=== PATIENT | female | born 1970 | race Hispanic/Latino ===

== ENCOUNTER 2024-09-30 15:28 | Emergency (ER) | payer OTHER ==
--- OUTSIDE RECORDS SUMMARY | 2024-09-30 15:31 | XMS REPORT | Continuity of Care Document ---
Author Name Unknown Address [address] [place] [address] [address] [place] [address] [facility] Address [address] [facility] [address] [place] [address] Care Team Providers Care Budget Controller Name Role Phone HUSEYIN SAL Attending Clinician Unavailable LAB90 Attending Clinician Unavailable JOSE ANGEL ACEVES Attending Clinician Unavailable DEMETRI ZALDIVAR Attending Clinician DARIELA Pugh Attending Clinician Unavailable SHARAD DONIS Attending Clinician MAYCO Pollard Attending Clinician Unavailable Payers Payer Name Policy Type Policy Number Effective Date Expirati on Date Source [facility] DUAL ACCESS OPEN (PPO D-SNP) 7 [id number] 2024 00:00:00 [employer] MA SELECT PLAN HMO 7 [id number] 2024 00:00:00 [employer] MP [facility] 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 9 [id number] 2023 00:00:00 Problems Condition Name Condition Details Condition Category Status Onset Date Resolution Date Last Treatment Date Treating Clinician Comments Source Morbid obesity Morbid obesity Disease Active 2023-06 00:00: 00 Maureen Kathleen Externa anne marie DM type 2 with diabetic mixed hyperlipid emia (multi HCC) DM type 2 with diabetic mixed hyperlipid emia (multi HCC) Disease Active 09-12 00:00: 00 Maureen Kathleen Externa anne marie Severe episode of recurrent major depressive disorder, 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, 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) Disease Active 09-12 00:00: 00 Maureen Seybold - Externa l Allergies, Adverse Reactions, Alerts Allergy Name Allergy Type Status Severity Reaction(s) Onset Date Inactive Date Treating Clinician Comments Source Asa-Sacc jered Lozanoi ty to adverse reaction s to drug Active Other 09-11 00:00: 00 Stomach issue Maureen Randall - Externa l Social History Social Habit Start Date Stop Date Quantity Comments Source History of tobacco use 1992-09-09 00:00:00 Passive smoker Maureen Randall - External Sexual orientation K jori Randall - External ASSERTION Not Maureen Randall - External Alcoholic beverage intake 2024-08-04 00:00:00 2024-08-04 00:00:00 Ex-drinker (finding) Maureen Randall - External Tobacco use and exposure 2023-12-14 00:00:00 2023-12-14 00:00:00 Smokeless tobacco non-user Maureen Kathleen External Cigarettes smoked current (pack per day) - Reported 2023-12-14 00:00:00 2023-12-14 00:00:00 Maureen Randall - External Cigarette pack-years 2023-12-14 00:00:00 2023-12-14 00:00:00 Maureen Randall - External Alcohol intake 2023-09-13 00:00:00 2023-09-13 00:00:00 Ex-drinker (finding) Maureen Randall - External History of Social function 2023-09-12 00:00:00 2023-09-12 00:00:00 Maureen Randall - External Tobacco Comment 2023-09-12 00:00:00 2023-09-12 00:00:00 STOPPED 1997 Maureen Randall - External Alcohol Comment 2023-09-12 00:00:00 2023-09-12 00:00:00 DRANK HEAVILY 1995 Maureen Randall - External Sex 2023-08-01 21:32:31 2023-08-01 21:32:31 Female (finding) Maureen Randall - External Sex assigned at 1970 00:00:00 1970 00:00:00 Maureen Randall - External Smoking Status Start Date Stop Date Source Ex-smoker 2023-12-14 00:00:00 2023-12-14 00:00:00 Kemal Kathleen External Medications Ordered Medication Name Filled Medication Name Start Date Stop Date Current Medication? Ordering Clinician Indication Dosage Frequency Signature (SIG) Comments Components Source Ketoconazol e 2 % apply externally Cream 08-04 00:00: 00 Yes [id number] Apply to rash twice a day. Maureen kenney Dulaglutide 4.5 MG/0.5ML subcutaneou s Solution Auto-inject or 08-04 00:00: 00 Yes [id number] 3 4.5mg Q1W Inject 4.5 mg into the skin once a week. Maureen kenney hydroCHLORO thiazide 12.5 MG oral Capsule 08-04 00:00: 00 Yes [id number] 12.5mg QD Take 1 capsule (12.5 mg total) by mouth daily. Maureen kenney hydroCHLORO thiazide 25 MG oral Tablet 08-04 00:00: 00 08-04 00:00 :00 No [id number] 25mg QD Take 1 tablet (25 mg total) by mouth daily. Maureen kenney Sumatriptan Succinate 25 MG oral Tablet 07-21 00:00: 00 Yes [id number] TAKE 1 TABLET BY MOUTH ONCE NEEDED FOR MIGRAINE (MAY REPEAT IN 2 HOURS IF UNRESOLVED . DO NOT EXCEED 200 MG IN 24 HOURS.). Maureen kenney Cyclobenzap rine HCl 5 MG oral Tablet 2023-06 00:00: 00 Yes [id number] 5mg QD TAKE 1 TABLET BY MOUTH NIGHTLY NEEDED FOR MUSCLE SPASMS Maureen kenney Topiramate 50 MG oral Tablet 2023-06 00:00: 00 08-04 00:00 :00 No [id number] 50mg Q.5D TAKE 1 TABLET BY MOUTH 2 TIMES DAILY Maureen kenney Topiramate 50 MG oral Tablet 2023-06 00:00: 00 05-28 00:00 :00 No [id number] 50mg QD Take 1 tablet (50 mg total) by mouth daily. Maureen kenney Topiramate 50 MG oral Tablet 2023-06 00:00: 00 Yes [id number] 50mg QD Take 1 tablet (50 mg total) by mouth daily. Maureen kenney Continuous Glucose Sensor (FreeStyle Gordon 2 Sensor) does not apply Misc 2023-06 00:00: 00 Yes [id number] 3 Check glucose continuous ly.. Maureen kenney Continuous Glucose Breastfeeding Educator (FreeStyle Gordon 2 Fairborn) does not apply Device 2023-06 00:00: 00 Yes [id number] 3 Check glucose continuous ly.. Maureen kenney Dulaglutide 4.5 MG/0.5ML subcutaneou s Solution Auto-inject or 2023-06 00:00: 00 08-04 00:00 :00 No [id number] 3 4.5mg Q1W Inject 4.5 mg into the skin once a week. Maureen kenney hydroCHLORO thiazide 12.5 MG oral Capsule 2023-06 00:00: 00 05-19 00:00 :00 No [id number] 12.5mg QD TAKE 1 CAPSULE BY MOUTH EVERY DAY Maureen kenney Trulicity 3 MG/0.5ML subcutaneou s Solution Auto-inject or 2023-06 00:00: 00 05-19 00:00 :00 No Maureen kenney Trulicity 3 MG/0.5ML subcutaneou s Solution Pen-injecto r 2023-06 00:00: 00 Yes [id number] 3 3mg Q1W Inject 3 mg into the skin once a week. Maureen kenney hydroCHLORO thiazide 12.5 MG oral Capsule 2023-06 00:00: 00 Yes [id number] 12.5mg QD Take 1 capsule (12.5 mg total) by mouth daily. Maureen kenney Cyclobenzap rine HCl 5 MG oral Tablet 2023-06 00:00: 00 Yes [id number] 5mg QD Take 1 tablet (5 mg total) by mouth nightly as needed for muscle spasms. Maureen kenney Trulicity 3 MG/0.5ML subcutaneou s Solution Pen-injecto r 2023-06 00:00: 00 05-19 00:00 :00 No [id number] 3 3mg Q1W Inject 3 mg into the skin once a week. Maureen kenney Topiramate 25 MG oral Tablet 03-06 00:00: 00 04-21 00:00 :00 No 25mg Q.5D Take 1 tablet (25 mg total) by mouth 2 times daily. Maureen kenney Dulaglutide (Trulicity) 1.5 MG/0.5ML subcutaneou s Solution Pen-injecto r 03-05 00:00: 00 04-21 00:00 :00 No [id number] 3 1.5mg Q1W Inject 1.5 mg into the skin once a week. Maureen kenney Ondansetron (ZOFRAN) 4 MG oral TABLET DISPERSIBLE 01-27 00:00: 00 Yes [id number] 4mg Q.[id number] 3D Take 1 tablet (4 mg total) by mouth every 8 hours as needed for nausea. Maureen kenney ALBUTEROL HFA 108 (90 Base) MCG/ACT IN AERS 01-27 00:00: 00 Yes [id number] 2{puff} Q.25D inhale 2 puffs by mouth every 6 hours as needed for wheeze Maureen kenney Trulicity 0.75 MG/0.5ML subcutaneou s Solution Pen-injecto r 12-13 00:00: 00 Yes [id number] 3 .75mg Q1W Inject 0.75 mg into the skin once a week. Maureen kenney Topiramate 50 MG oral Tablet 12-13 00:00: 00 05-19 00:00 :00 No [id number] 50mg Q.5D Take 1 tablet (50 mg total) by mouth 2 times daily. Maureen kenney Metformin HCl 1000 MG oral Tablet 12-12 00:00: 00 12-13 00:00 :00 No [id number] 3 1000mg Take 1 tablet (1,000 mg total) by mouth in the morning and 1 tablet (1,000 mg total) in the evening. Take with meals. Maureen kenney Fluoxetine HCl 20 MG oral Capsule 12-06 00:00: 00 04-21 00:00 :00 No [id number] 20mg QD TAKE 1 CAPSULE BY MOUTH EVERY DAY Maureen kenney Topiramate 25 MG oral Tablet 12-06 00:00: 00 12-13 00:00 :00 No [id number] 25mg TAKE 1 TABLET (25 MG TOTAL) BY MOUTH 2 TIMES DAILY. Maureen kenney Fluoxetine HCl 20 MG oral Capsule 11-13 00:00: 00 Yes [id number] 20mg Take 1 capsule (20 mg total) by mouth daily. Maureen kenney Topiramate 25 MG oral Tablet 11-13 00:00: 00 Yes [id number] 25mg Take 1 tablet (25 mg total) by mouth 2 times daily. Maureen kenney Trulicity 3 MG/0.5ML subcutaneou s Solution Pen-injecto r 11-13 00:00: 00 Yes [id number] 3 3mg Inject 3 mg into the skin once a week. Maureen kenney Ondansetron (ZOFRAN) 4 MG oral TABLET DISPERSIBLE 11-13 00:00: 00 Yes [id number] 4mg Q.[id number] 3D Take 1 tablet (4 mg total) by mouth every 8 hours as needed for nausea. Maureen kenney Sumatriptan Succinate 25 MG oral Tablet 11-11 00:00: 00 Yes [id number] 25mg Take 1 tablet (25 mg total) by mouth once as needed for migraine (May repeat in 2 hours if unresolved . Do not exceed 200 mg in 24 hours.). Maureen kenney Dulaglutide (Trulicity) 1.5 MG/0.5ML subcutaneou s Solution Pen-injecto r 11-11 00:00: 00 11-13 00:00 :00 No [id number] 3 1.5mg Inject 1.5 mg into the skin once a week. Maureen kenney Sertraline HCl 25 MG oral Tablet 11-11 00:00: 00 11-13 00:00 :00 No [id number] 25mg Take 1 tablet (25 mg total) by mouth daily. Maureen kenney Sumatriptan Succinate 25 MG oral Tablet 10-09 00:00: 00 Yes [id number] 25mg Take 1 tablet (25 mg total) by mouth once as needed for migraine (May repeat in 2 hours if unresolved . Do not exceed 200 mg in 24 hours.). Maureen kenney Sertraline HCl 25 MG oral Tablet 10-09 00:00: 00 Yes [id number] 25mg Take 1 tablet (25 mg total) by mouth daily. Maureen kenney Trulicity 1.5 MG/0.5ML subcutaneou s Solution Pen-injecto r 10-09 00:00: 00 Yes [id number] 3 1.5mg Inject 1.5 mg into the skin once a week. Maureen kenney Ondansetron (ZOFRAN) 4 MG oral TABLET DISPERSIBLE 10-09 00:00: 00 11-13 00:00 :00 No [id number] 4mg Q.[id number] 3D Take 1 tablet (4 mg total) by mouth every 8 hours as needed for nausea. Maureen kenney Albuterol HFA 108 (90 Base) MCG/ACT IN AERS 10-07 00:00: 00 Yes [id number] 2{puff} Q.25D Inhale 2 puffs into the lungs every 6 hours as needed for wheezing. Maureen kenney Sertraline HCl 50 MG oral Tablet 10-07 00:00: 00 10-09 00:00 :00 No [id number] 50mg TAKE 1 TABLET BY MOUTH EVERY DAY Maureen kenney OZEMPIC (1 mg/dose) 4 mg/3 mL SQ Solution Pen-Injecto r 09-17 08:57: 19 09-17 00:00 :00 No INJECT 1 MO SUBCUTANEO USLY ONCE A WEEK Maureen kenney Vitamin D, Ergocalcife rol, 1.25 MG (79771 UT) oral Capsule 09-17 00:00: 00 04-21 00:00 :00 No [id number] 62351V Q1W Take 1 capsule (50,000 units total) by mouth once a week. Maureen kenney Fluticasone -Salmeterol (Advair Diskus) 100-50 MCG/ACT inhalation AEROSOL POWDER, BREATH ACTIVATED 09-12 17:13: 47 09-12 00:00 :00 Eulalia kenney Exenatide (Byetta 10 MCG Pen) 10 MCG/0.04ML subcutaneou s Solution Pen-injecto r 09-12 17:13: 47 09-12 00:00 :00 Eulalia kenney Pantoprazol e Sodium 40 MG oral Tablet Delayed Response 09-12 17:13: 47 09-12 00:00 :00 Eulalia kenney Tramadol HCl (ULTRAM) 50 MG oral Tablet 09-12 17:13: 47 09-12 00:00 :00 Eulalia kenney Diclofenac Sodium 1 % apply externally Gel 09-12 17:10: 59 09-12 00:00 :00 Eulalia kenney Sertraline HCl 50 MG oral Tablet 09-12 17:10: 59 09-12 00:00 :00 Eulalia kenney Sumatriptan Succinate 50 MG oral Tablet 09-12 17:06: 47 09-12 00:00 :00 Eulalia kenney Atorvastati n Calcium 40 MG oral Tablet 09-12 00:00: 00 Yes [id number] 3 Take 1 tablet every day by oral route.. Maureen kenney Sertraline HCl 50 MG oral Tablet 09-12 00:00: 00 Yes [id number] 50mg Take 1 tablet (50 mg total) by mouth daily. Maureen kenney Albuterol HFA 108 (90 Base) MCG/ACT IN AERS 09-12 00:00: 00 Yes [id number] 2{puff} Q.25D Inhale 2 puffs into the lungs every 6 hours as needed for wheezing. Maureen kenney Trulicity 0.75 MG/0.5ML subcutaneou s Solution Pen-injecto r 09-12 00:00: 00 10-09 00:00 :00 No [id number] 3 .75mg Inject 0.75 mg into the skin once a week. Maureen kenney Diclofenac Sodium 1 % apply externally Gel 09-12 00:00: 00 10-09 00:00 :00 No [id number] 1{appli cation} Q.5D Apply 1 Applicatio n topically 2 times daily as needed. Maureen kenney Sumatriptan Succinate 25 MG oral Tablet 09-12 00:00: 00 10-09 00:00 :00 No [id number] 25mg Take 1 tablet (25 mg total) by mouth once as needed for migraine (May repeat in 2 hours if unresolved . Do not exceed 200 mg in 24 hours.). Maureen kenney Metformin HCl 500 MG oral Tablet 09-12 00:00: 00 09-17 00:00 :00 No [id number] 3 500mg Take 1 tablet (500 mg total) by mouth daily (with breakfast) . Maureen kenney Meloxicam 7.5 MG oral Tablet 2022-06 2 00:00: 00 09-12 00:00 :00 No Take 1 tablet every day by oral route. Maureen kenney Vitamin D, Ergocalcife rol, 1.25 MG (18802 UT) oral Capsule 2022-06 0 00:00: 00 09-12 00:00 :00 No Take 1 capsule every week by oral route. Maureen kenney Atorvastati n Calcium 40 MG oral Tablet 2022-06 0- 00:00: 00 09-12 00:00 :00 No Take 1 tablet every day by oral route. Maureen kenney Cyanocobala min 1000 MCG sublingual SL Tab 2022-06 00:00: 00 09-12 00:00 :[address] 1 tablet every day by sublingual route. Maureen kenney Folic Acid 1 MG oral tablet 2022-06 0 00:00: 00 09-12 00:00 :00 No Take 1 tablet every day by oral route. Maureen kenney Immunizations Ordered Immunization Name Filled Immunization Name Date Status Comments Source Influenza Virus Vaccine, Split, up to age 3 Unknown Completed Maureen Randall - External Covid-19 Vaccine (UNSPECIFIED) Unknown Completed Maureen Cuevalisseth - External Tdap- (Boostrix, Adacel) Unknown Completed Maureen Cuevalisseth - External Influenza Virus Vaccine, Split, up to age 3 Unknown Completed Maureen Prakash - External Covid-19 Vaccine (UNSPECIFIED) Unknown Completed Maureen Millerrocky - External Tdap- (Boostrix, Adacel) Unknown Completed Maureen Millerlisseth - External Tdap- (Boostrix, Adacel) Unknown [facility]-19 Vaccine Moderna (Spikevax), Mrna-lnp, Josue Protein, Pf Unknown Completed Maureen Millerrocky - External Influenza Virus Vaccine, Unspecified Formulation Unknown Completed Maureen Millerkrystleold - External Influenza Virus Vaccine, No Preserv, age 6 months and up Unknown Completed Maureen Barbosa eybold - External Influenza Virus Vaccine, Whole Virus Unknown Completed Maureen Randall - External Hep A/ Hep B Combo Unknown Completed Kemal Randall - External Pneumococcal Vaccine, Polysaccharide Unknown Completed Maureen Cuevas d - External Influenza Virus Vaccine, Split, up to age 3 Unknown Completed Maureen Prakash - External Covid-19 Vaccine (UNSPECIFIED) Unknown Completed Maureen rocky - External Tdap- (Boostrix, Adacel) Unknown Completed Maureen Seybold - External Tdap- (Boostrix, Adacel) Unknown Completed Maureen Seybold - External Covid-19 Vaccine Moderna (Spikevax), Mrna-lnp, Josue Protein, Pf Unknown Completed Maureen Seybold - External Influenza Virus Vaccine, Unspecified Formulation Unknown Completed Maureen Seybold - External Influenza Virus Vaccine, No Preserv, age 6 months and up Unknown Completed Maureen S eybold - External Influenza Virus Vaccine, Whole Virus Unknown Completed Maureen Seybold - External Hep A/ Hep B Combo Unknown Completed K elsey Seybold - External Pneumococcal Vaccine, Polysaccharide Unknown Completed Maureen Seybol d - External Influenza Virus Vaccine, Split, up to age 3 Unknown Completed Maureen Seybold - External Covid-19 Vaccine (UNSPECIFIED) Unknown Completed Maureen Seybold - External Tdap- (Boostrix, Adacel) Unknown Completed Maureen Seybold - External Tdap- (Boostrix, Adacel) Unknown Completed Maureen Seybold - External Covid-19 Vaccine Moderna (Spikevax), Mrna-lnp, Josue Protein, Pf Unknown Completed Maureen Seybold - External Influenza Virus Vaccine, Unspecified Formulation Unknown Completed Maureen Seybold - External Influenza Virus Vaccine, No Preserv, age 6 months and up Unknown Completed Maureen S eybold - External Influenza Virus Vaccine, Whole Virus Unknown Completed Maureen Seybold - External Hep A/ Hep B Combo Unknown Completed Kemal elsey Seybold - External Pneumococcal Vaccine, Polysaccharide Unknown Completed Maureen Seybol d - External Influenza Virus Vaccine, age 6 months and up Unknown Completed Maureen Seybold - External Covid-19 Vaccine (UNSPECIFIED) Unknown Completed Maureen Seybold - External Tdap- (Boostrix, Adacel) Unknown Completed Maureen Seybold - External Tdap- (Boostrix, Adacel) Unknown Completed Maureen Seybold - External Covid-19 Vaccine Moderna (Spikevax), Mrna-lnp, Josue Protein, Pf Unknown Completed Maureen Seybold - External Influenza Virus Vaccine, Unspecified Formulation Unknown Completed Maureen Seybold - External Influenza Virus Vaccine, No Preserv, age 6 months and up Unknown Completed Maureen S eybold - External Influenza Virus Vaccine, Whole Virus Unknown Completed Maureen Seybold - External Hep A/ Hep B Combo Unknown Completed Kemal hsieh Seybold - External Pneumococcal Vaccine, Polysaccharide [facility] Sh[facility] S[facility] (Zostavax) [facility] Influenza Virus Vaccine, age 6 months and up Unknown Completed [facility] Seybold - External Covid-19 Vaccine (UNSPECIFIED) Unknown [facility] T[facility]- (Boostrix, Adacel) Unknown Completed [facility] Seybold - External Tdap- (Boostrix, Adacel) Unknown Completed [facility] Seybold - External Covid-19 Vaccine Moderna (Spikevax), Mrna-lnp, Josue Protein, Pf [facility] Influenza Virus Vaccine, Unspecified Formulation Unknown [facility] Influenza Virus Vaccine, No Preserv, age 6 months and up Unknown Completed [facility] eybold - External Influenza Virus Vaccine, Whole Virus Unknown [facility]/ Hep B Combo Unknown Completed Kemal hsieh Seybold - External Pneumococcal Vaccine, Polysaccharide Unknown [facility] Shingles SQ (Zostavax) Unknown [facility] FLUCELVAX TRIVALENT PF Unknown [facility] Shingles IM (Shingrix) Unknown [facility] Influenza Virus Vaccine, age 6 months and up Unknown [facility] Cov[facility]-19 Vaccine (UNSPECIFIED) Unknown [facility] Tdap- (Boostrix, Adacel) Unknown [facility] Tdap- (Boostrix, Adacel) Unknown [facility] Covid-19 Vaccine Moderna (Spikevax), Mrna-lnp, Josue Protein, Pf Unknown [facility] Influenza Virus Vaccine, Unspecified Formulation Unknown Completed Maureen Seybold - External Influenza Virus Vaccine, No Preserv, age 6 months and up Unknown Completed [facility] eybold - External Influenza Virus Vaccine, Whole Virus Unknown Completed Maureen Seybold - External Hep A/ Hep B Combo Unknown Completed Kemal hsieh Seybold - External Pneumococcal Vaccine, Polysaccharide Unknown Completed Maureen Seybol d - External Shingles SQ (Zostavax) Unknown Completed Maureen Randall - External FLUCELVAX TRIVALENT PF Unknown Completed Maureen Randall - External Shingles IM (Shingrix) Unknown Completed Maureen Randall - External Influenza Virus Vaccine, Split, up to age 3 Unknown Completed Maureen Cuevaold - External Covid-19 Vaccine (UNSPECIFIED) Unknown Completed Maureen Randall - External Tdap- (Boostrix, Adacel) Unknown Completed Maureen Randall - External Influenza Virus Vaccine, Split, up to age 3 Unknown Completed Maureen Randall - External Covid-19 Vaccine (UNSPECIFIED) Unknown Completed Maureen Randall - External Tdap- (Boostrix, Adacel) Unknown Completed Maureen Randall - External Vital Signs Vital Name Observation Time Observation Value Comments S ource Systolic blood pressure 2024-08-04 20:57:00 124 mm[Hg] Maureen Millerybo ld - External Diastolic blood pressure 2024-08-04 20:57:00 74 mm[Hg] Maureen Millerybo ld - External Heart rate 2024-08-04 20:57:00 112 /min Radha y Seybold - External Body temperature 2024-08-04 20:57:00 36.56 Mariana Maureen Millerybold - External Respiratory rate 2024-08-04 20:57:00 15 /min Maureen Cuevaold - External Body height 2024-08-04 20:57:00 160 cm Sravani west Seybold - External Body weight 2024-08-04 20:57:00 103.874 kg Sravani ey Seybold - External BMI 2024-08-04 20:57:00 40.57 kg/m2 Sravani ey Seybold - External Oxygen saturation in Arterial blood by Pulse oximetry 2024-08-04 20:57:00 95 /min Maureen Cuevao ld - External Systolic blood pressure 2024-05-19 16:34:00 102 mm[Hg] Maureen Millerybo ld - External Diastolic blood pressure 2024-05-19 16:34:00 74 mm[Hg] Maureen Millerybo ld - External Heart rate 2024-05-19 16:34:00 100 /min Kelse y Seybold - External Body temperature 2024-05-19 16:34:00 36.67 Mariana Maureen Seybold - External Respiratory rate 2024-05-19 16:34:00 16 /min Maureen Seybold - External Body height 2024-05-19 16:34:00 160 cm Sravani ey Seybold - External Body weight 2024-05-19 16:34:00 106.142 kg Sravani ey Seybold - External BMI 2024-05-19 16:34:00 41.45 kg/m2 Sravani ey Seybold - External Oxygen saturation in Arterial blood by Pulse oximetry 2024-05-19 16:34:00 97 /min Maureen Seybo ld - External Systolic blood pressure 2024-04-21 19:02:00 128 mm[Hg] Maureen Seybo ld - External Diastolic blood pressure 2024-04-21 19:02:00 72 mm[Hg] Maureen Seybo ld - External Heart rate 2024-04-21 19:02:00 98 /min Chonse y Seybold - External Body temperature 2024-04-21 19:02:00 36.89 Mariana Maureen Seybold - External Respiratory rate 2024-04-21 19:02:00 16 /min Maureen Seybold - External Body height 2024-04-21 19:02:00 160 cm Sravani ey Seybold - External Body weight 2024-04-21 19:02:00 105.688 kg Sravani ey Seybold - External BMI 2024-04-21 19:02:00 41.27 kg/m2 Sravani ey Seybold - External Systolic blood pressure 2023-12-14 15:02:00 120 mm[Hg] Maureen Seybo ld - External Diastolic blood pressure 2023-12-14 15:02:00 80 mm[Hg] Maureen Seybo ld - External Heart rate 2023-12-14 15:02:00 81 /min Kelse y Seybold - External Body temperature 2023-12-14 15:02:00 35.94 Mariana Maureen Seybold - External Respiratory rate 2023-12-14 15:02:00 16 /min Maureen Seybold - External Body height 2023-12-14 15:02:00 160 cm Sravani ey Seybold - External Body weight 2023-12-14 15:02:00 104.781 kg Sravani ey Seybold - External BMI 2023-12-14 15:02:00 40.92 kg/m2 Sravani ey Seybold - External Systolic blood pressure 2023-11-14 13:43:00 108 mm[Hg] Maureen Seybo ld - External Diastolic blood pressure 2023-11-14 13:43:00 84 mm[Hg] Maureen Seybo ld - External Heart rate 2023-11-14 13:43:00 89 /min Kelse y Seybold - External Body temperature 2023-11-14 13:43:00 35.61 Mariana Maureen Seybold - External Respiratory rate 2023-11-14 13:43:00 16 /min Maureen Seybold - External Body height 2023-11-14 13:43:00 160 cm Sravani ey Seybold - External Body weight 2023-11-14 13:43:00 106.595 kg Sravani ey Seybold - External BMI 2023-11-14 13:43:00 41.63 kg/m2 Sravani ey Seybold - External Systolic blood pressure 2023-10-10 19:00:00 112 mm[Hg] Maureen Seybo ld - External Diastolic blood pressure 2023-10-10 19:00:00 76 mm[Hg] Maureen Seybo ld - External Heart rate 2023-10-10 19:00:00 93 /min Kelse y Seybold - External Body temperature 2023-10-10 19:00:00 36.22 Mariana Maureen Seybold - External Respiratory rate 2023-10-10 19:00:00 15 /min Maureen Seybold - External Body height 2023-10-10 19:00:00 160 cm Sravani ey Seybold - External Body weight 2023-10-10 19:00:00 103.874 kg Sravani ey Seybold - External BMI 2023-10-10 19:00:00 40.57 kg/m2 Sravani ey Seybold - External Systolic blood pressure 2023-09-13 21:25:00 118 mm[Hg] Maureen Seybo ld - External Diastolic blood pressure 2023-09-13 21:25:00 68 mm[Hg] Maureen Seybo ld - External Heart rate 2023-09-13 21:25:00 110 /min Kelse y Seybold - External Body temperature 2023-09-13 21:25:00 36.83 Mariana Maureen Randall - External Respiratory rate 2023-09-13 21:25:00 18 /min Maureen Randall - External Body height 2023-09-13 21:25:00 160 cm Sravani Randall - External Body weight 2023-09-13 21:25:00 104.497 kg Sravani Cuevaold - External BMI 2023-09-13 21:25:00 40.81 kg/m2 Sravani Randall - External Oxygen saturation in Arterial blood by Pulse oximetry 2023-09-13 21:25:00 97 /min Maureen Piotr ld - External Encounters Start Date/Time End Date/Time Encounter Type Admission Type Attending [facility] Department Encounter ID Source 2024-12-12 09:00:00 2024-12-12 09:00:00 Outpatient HUSEYIN SAL [id number] Maureen rocky 2024-09-26 15:50:00 2024-09-26 15:50:00 Outpatient LAB90 MAUREEN EUBANKS [id number] Maureen rocky 2024-09-10 00:00:00 2024-09-10 00:00:00 Outpatient HUSEYIN SAL [id number] Maureen Randall 2024-09-06 00:00:00 2024-09-06 00:00:00 Outpatient HUSEYIN SAL [id number] Maureen Randall 2024-09-05 00:00:00 2024-09-05 00:00:00 Outpatient HUSEYIN SAL [id number] Maureen rocky 2024-09-04 00:00:00 2024-09-04 00:00:00 Outpatient HUSEYIN SAL [id number] Maureen Randall 2024-09-04 00:00:00 2024-09-04 00:00:00 Outpatient HUSEYIN SAL [id number] Maureen Randall 2024-09-02 00:00:00 2024-09-02 00:00:00 Outpatient HUSEYIN SAL [id number] Maureen Cuevaold 2024-08-21 00:00:00 2024-08-21 00:00:00 Outpatient HUNDL, HUSEYIN MAUREEN EUBANKS [id number] Maureen Seybold 2024-08-13 00:00:00 2024-08-13 00:00:00 Outpatient PREZASJOSE ANGEL MAUREEN EUBANKS [id number] Maureen Seybold 2024-08-04 15:00:00 2024-08-04 15:00:00 Outpatient HUNDL, HUSEYIN EUBANKS [id number] Maureen Seybold 2024-07-21 00:00:00 2024-07-21 00:00:00 Outpatient HUNDL, HUSEYIN EUBANKS [id number] Maureen Seybold 2024-06-24 00:00:00 2024-06-24 00:00:00 Outpatient HUNDL, HUSEYIN EUBANKS [id number] Maureen Seybold 2024-06-20 00:00:00 2024-06-20 00:00:00 Outpatient HUNDL, HUSEYIN EUBANKS [id number] Maureen Seybold 2024-06-13 10:00:00 2024-06-13 10:00:00 Outpatient HUNDL, HUSEYIN EUBANKS [id number] Maureen Seybold 2024-06-06 00:00:00 2024-06-06 00:00:00 Outpatient HUNDL, HUSEYIN EUBANKS [id number] Maureen Seybold 2024-06-01 00:00:00 2024-06-01 00:00:00 Outpatient HUNDL, HUSEYIN EUBANKS [id number] Maureen Seybold 2024-05-28 15:00:00 2024-05-28 15:00:00 Outpatient HUNDL, HUSEYIN EUBANKS [id number] Maureen Seybold 2024-05-28 14:00:00 2024-05-28 14:00:00 Outpatient HUNDL, HUSEYIN EUBANKS [id number] Maureen Seybold 2024-05-20 09:10:00 2024-05-20 09:10:00 Outpatient MAUREEN EUBANKS [id number] Maureen Seybold 2024-05-20 09:05:00 2024-05-20 09:05:00 Outpatient MAUREEN MAUREEN [id number] Maureen Milleryblisseth 2024-05-20 09:00:00 2024-05-20 09:00:00 Outpatient MAUREEN EUBANKS [id number] Maureen Milleryblisseth 2024-05-19 10:45:00 2024-05-19 10:45:00 Outpatient PREZASJOSE ANGEL MAUREEN EUBANKS [id number] Maureen Seybold 2024-05-14 00:00:00 2024-05-14 00:00:00 Outpatient HUNDL, HUSEYIN MAUREEN EUBANKS [id number] Maureen Seybold 2024-05-13 00:00:00 2024-05-13 00:00:00 Outpatient HUNDL, HUSEYIN EUBANKS [id number] [facility] 2024-04-21 14:45:00 2024-04-21 14:45:00 Outpatient LAB90 MAUREEN EUBANKS [id number] [facility] 2024-04-21 14:00:00 2024-04-21 14:00:00 Outpatient HUNDL, HUSEYIN MAUREEN EUBANKS [id number] Maureen Seybold 2024-03-12 00:00:00 2024-03-12 00:00:00 Outpatient PREZAS, JOSE ANGEL MAUREEN EUBANKS [id number] Maurene Seybold 2024-03-04 00:00:00 2024-03-04 00:00:00 Outpatient PREZAS, JOSE ANGEL EUBANKS [id number] Maureen Seybold 2024-03-03 00:00:00 2024-03-03 00:00:00 Outpatient HUNDL, HUSEYIN EUBANKS [id number] Maureen Seybold 2024-02-02 00:00:00 2024-02-02 00:00:00 Outpatient HUNDL, HUSEYIN EUBANKS [id number] Maureen Seybold 2024-01-25 00:00:00 2024-01-25 00:00:00 Outpatient HUNDL, HUSEYIN EUBANKS [id number] Maureen Seybold 2024-01-25 00:00:00 2024-01-25 00:00:00 Outpatient HUNDAnne Marie, HUSEYIN EUBANKS [id number] [facility] 2024-01-25 00:00:00 2024-01-25 00:00:00 Outpatient HUNDL, HUSEYIN EUBANKS [id number] Maureen Seybold 2024-01-08 00:00:00 2024-01-08 00:00:00 Outpatient HUNDL, HUSEYIN EUBANKS [id number] Maureen Seybold 2024-01-07 00:00:00 2024-01-07 00:00:00 Outpatient HUNDL, HUSEYIN EUBANKS [id number] [facility] 2024-01-02 00:00:00 2024-01-02 00:00:00 Outpatient HUNDL, HUSEYIN EUBANKS [id number] [facility] 2023-12-29 00:00:00 2023-12-29 00:00:00 Outpatient HUNDL, HUSEYIN EUBANKS [id number] [facility] 2023-12-21 13:45:00 2023-12-21 13:45:00 Outpatient HARMS, DEMETRI EUBANKS [id number] Maureen Seybold 2023-12-21 11:00:00 2023-12-21 11:00:00 Outpatient DIORDARIELA MAUREEN EUBANKS [id number] Maureen Seybold 2023-12-14 10:00:00 2023-12-14 10:00:00 Outpatient HUNDL, HUSEYIN EUBANKS [id number] Maureen Seybold 2023-12-14 00:00:00 2023-12-14 00:00:00 Outpatient HUNDL, HUSEYIN EUBANKS [id number] Maureen Seybold 2023-12-13 00:00:00 2023-12-13 00:00:00 Outpatient HUNDL, HUSEYIN EUBANKS [id number] Maureen Seybold 2023-12-10 00:00:00 2023-12-10 00:00:00 Outpatient HUNDL, HUSEYIN EUBANKS [id number] Maureen Seybold 2023-12-06 00:00:00 2023-12-06 00:00:00 Outpatient HUNDL, HUSEYIN EUBANKS [id number] Maureen Seybold 2023-12-04 10:30:00 2023-12-04 10:30:00 Outpatient SHARAD DONIS MAUREEN EUBANKS [id number] Maureen Seybold 2023-12-04 10:30:00 2023-12-04 10:30:00 Outpatient MAYCO SAHU MAUREEN EUBANKS [id number] Maureen Seybold 2023-11-14 09:00:00 2023-11-14 09:00:00 Outpatient HUNDL, HUSEYIN EUBANKS [id number] Maureen Seybold 2023-11-08 00:00:00 2023-11-08 00:00:00 Outpatient HUNDL, HUSEYIN EUBANKS [id number] Maureen Seybold 2023-11-07 00:00:00 2023-11-07 00:00:00 Outpatient HUNDL, HUSEYIN EUBANKS [id number] Maureen Seybold 2023-11-06 00:00:00 2023-11-06 00:00:00 Outpatient HUNDL, HUSEYIN EUBANKS [id number] Maureen Seybold 2023-11-02 00:00:00 2023-11-02 00:00:00 Outpatient HUNDL, HUSEYIN EUBANKS [id number] Maureen Seybold 2023-10-10 14:00:00 2023-10-10 14:00:00 Outpatient HUNDL, HUSEYIN EUBANKS [id number] Maureen Seybold 2023-10-06 00:00:00 2023-10-06 00:00:00 Outpatient HUNDL, HUSEYIN EUBANKS [id number] Maureen Seybold 2023-10-06 00:00:00 2023-10-06 00:00:00 Outpatient HUNDL, HUSEYIN EUBANKS [id number] Maureen Seybold 2023-09-18 00:00:00 2023-09-18 00:00:00 Outpatient HUNDL, HUSEYIN EUBANKS [id number] Maureen Seybold 2023-09-17 00:00:00 2023-09-17 00:00:00 Outpatient HUNDL, HUSEYIN EUBANKS [id number] Maureen Seybold 2023-09-14 08:50:00 2023-09-14 08:50:00 Outpatient LAB90 MAUREEN SWAINSEY [id number] Maureen Millerrocky 2023-09-14 00:00:00 2023-09-14 00:00:00 Outpatient HUSEYIN SALSEY [id number] Maureen Millerrocky 2023-09-13 16:30:00 2023-09-13 16:30:00 Outpatient JONELLEHUSEYIN MAUREEN [id number] [facility] 2023-09-13 16:30:00 2023-09-13 16:30:00 Outpatient JONELLEHUSEYIN MAUREEN EUBANKS [id number] [facility] Notes Date/Time Note Provider Source 2024-08-04 14:59:50 Chief Complaint Patient presents with Diabetes Diabetic follow up Follow-up Discuss PT on knees Saba Arreola MA [facility] 2024-05-19 10:38:31 Chief Complaint Patient presents with Follow-up Shooting pains to BLE and numbness in the feet Princess Matute LVN [facility] 2024-04-21 14:07:49 Chief Complaint Patient presents with Leg Pain Pain and swelling that starts in bilateral feet and radiates up to hips. Saba Arreola MA [facility] 2023-11-14 08:47:36 Chief Complaint Patient presents with Follow-up Follow up on anxiety/depression. She states she feels the same Follow up on Diabetes Saba Arreola MA II T Saba Arreola MA, II [facility] 2023-10-10 14:03:07 Chief Complaint Patient presents with Diabetes Diabetic follow up Saba Arreola MA II Saba Arreola MA, II [facility] 2023-09-13 16:36:20 Chief Complaint Patient presents with New Patient Establish Care Need to get back on her medications Princess Matute LVN [facility]
--- NOTE | 2024-09-30 17:00 | RAD REPORT ---
Procedure: Chest Pa And Lat (2 Views) HISTORY: Cough COMPARISON: none FINDINGS: The lungs appear clear of acute infiltrate. . Calcification overlying the right upper hemithorax may represent a pleural plaque. No significant pleural effusion noted. The heart is mildly enlarged. IMPRESSION: No acute abnormality is displayed.
[2024-09-30 17:57] LABS: Influenza A Ag Negative; Influenza B Ag Negative; SARS-CoV-2 Antigen Rapid Res Negative (Negative)
[2024-09-30] MEDS ORDERED: HYDROCODONE/CHLORPHEN 5 ML/OSYR ONE (19:06)
[2024-09-30] MEDS ORDERED: ONDANSETRON 4 MG (ODT) TAB ONE (19:06)
--- NOTE | 2024-09-30 19:33 | ER ---
Nurse's Notes [facility] Name: Jenni Doran Age: 54 yrs Sex: Female : 1970 Arrival Date: 09/30/2024 Time: 15:28 Bed 20 Private MD: Diagnosis: Cough Presentation: 09/30 15:35 Chief complaint: Patient states: she has been coughing and vomiting for 4 days. patient ap3 states the vomiting occurs when she is coughing. Coronavirus screen: At this time, the client does not indicate any symptoms associated with coronavirus-19. Ebola Screen: No symptoms or risks identified at this time. Initial Sepsis Screen:. Risk Assessment: Do you want to hurt yourself or someone else? Patient reports no desire to harm self or others. Onset of symptoms was September 26, 2024. 15:35 Method Of Arrival: Ambulatory ap3 15:35 Acuity: ANICETO 3 ap3 15:38 Initial Sepsis Screen: Does the patient meet any 2 criteria? HR > 90 bpm. Does the ap3 patient have a suspected source of infection? No. Patient's initial sepsis screen is negative. Triage Assessment: 15:39 General: Appears ill, Behavior is calm, cooperative, appropriate for age. General: ap3 Reports chills for fever for feeling ill for fatigue for. Pain: Complains of pain in abdomen. Neuro: Level of Consciousness is awake, alert, obeys commands, Oriented to person, place, time, situation. Respiratory: Reports cough that is persistent cough \T\ vomit Airway is patent Respiratory effort is even, unlabored, Respiratory pattern is regular, symmetrical. GI: Reports nausea, vomiting. 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 - Infectious Disease History:: Denies. - Social history:: Smoking status: Patient denies any tobacco usage or history of. Screenin:40 Abuse screen: Denies threats or abuse. Nutritional screening: No deficits noted. ap3 Tuberculosis screening: No symptoms or risk factors identified. 19:10 [facility] ED Fall Risk Assessment (Adult) History of falling in the last 3 months, lg3 including since admission No falls in past 3 months (0 pts) Confusion or Disorientation No (0 pts) Intoxicated or Sedated No (0 pts) Impaired Gait No (0 pts) Mobility Assist Device Used No (0 pt) Altered Elimination No (0 pt) Score/Fall Risk Level 0 - 2 = Low Risk Oriented to surroundings, Maintained a safe environment, Educated pt \T\ family on fall prevention, incl call for assistance when getting out of bed, Assessed \T\ reinforced patient's understanding of fall precautions. Assessment: 19:10 General: Appears in no apparent distress. comfortable, Behavior is calm, cooperative. lg3 Pain: Denies pain. Neuro: No deficits noted. Wright Agitation-Sedation Scale (RASS): 0 - Alert and Calm Level of Consciousness is awake, alert, obeys commands, Oriented to person, place, time, situation. Cardiovascular: No deficits noted. Denies chest pain, shortness of breath, Capillary refill < 3 seconds Clubbing of nail beds is absent JVD is absent Patient's skin is warm and dry. Respiratory: No deficits noted. Reports cough that is persistent Airway is patent Respiratory effort is even, unlabored, Respiratory pattern is regular, symmetrical, Breath sounds are clear bilaterally. GI: No deficits noted. Abdomen is round non-distended, obese, Bowel sounds present X 4 quads. Abd is soft and non tender X 4 quads. Reports nausea, vomiting. : No signs and/or symptoms were reported regarding the genitourinary system. EENT: No deficits noted. No signs and/or symptoms were reported regarding the EENT system. Derm: No deficits noted. No signs and/or symptoms reported regarding the dermatologic system. Skin is intact, is healthy with good turgor, Skin is dry, Skin is normal, Skin temperature is warm. Musculoskeletal: No deficits noted. No signs and/or symptoms reported regarding the musculoskeletal system. Circulation, motion, and sensation intact. Range of motion: intact in all extremities. Vital Signs: 15:35 Resp 19; Temp 98.5; Pulse Ox 96% ; Weight 103.42 kg; Height 5 ft. 3 in. ; ap3 15:38 BP 127 / 84; Pulse 108; ap3 19:10 BP 122 / 88; Pulse 97; Resp 18 S; Pulse Ox 97% on R/A; lg3 15:35 Body Mass Index 40.39 (103.42 kg, 160.02 cm) ap3 ED Course: 15:30 Patient arrived in ED. mr 15:31 Sride[facility]den [facility]C [facility] kb 15:31 Antonio Nation MD is Attending Physician. kb 15:37 Triage completed. ap3 15:40 Arm band placed on left wrist. ap3 16:11 Chest Pa And Lat (2 Views) XRAY In Process Unspecified. EDMS 17:25 Group A Streptococcus Rapid Sent. bc6 17:25 COVID-19 Ag + Flu A+B Ag Sent. bc6 17:25 COVID swab sent to lab. Flu and/or RSV swab sent to lab. Strep swab sent to lab. bc6 19:10 Patient has correct armband on for positive identification. Placed in gown. Bed in low lg3 position. Call light in reach. Side rails up X 1. Client placed on continuous cardiac and pulse oximetry monitoring. NIBP monitoring applied. Door closed. Noise minimized. Warm blanket given. Pillow given. 19:10 Patient maintains SpO2 saturation greater than 95% on room air. lg3 19:46 No provider procedures requiring assistance completed. Patient did not have IV access lg3 during this emergency room visit. Administered Medications: 19:12 Drug: Ondansetron Oral Disintegrating Tablet Oral Disintegrating Tablet 4 mg PO once lg3 Route: PO; 19:46 Follow up: Response: No adverse reaction lg3 19:12 Drug: Tussionex Pennkinetic ER PO Suspension 5 ml PO once Route: PO; lg3 19:46 Follow up: Response: No adverse reaction lg3 Medication: 19:10 VIS not applicable for this client. lg3 Outcome: 19:33 Discharge ordered by . kb 19:46 Discharged to home ambulatory, lg3 19:46 Condition: stable 19:46 Discharge instructions given to patient, Instructed on discharge instructions, follow up and referral plans. medication usage, Demonstrated understanding of instructions, follow-up care, medications, Prescriptions given X 2, 19:47 Patient left the ED. lg3 Signatures: Dispatcher [employer] EDMS Sridevi Oden FNP-C CREATIVE WRITING ENGLISH PROFESSOR-CkJacqueline Freed, Reg Reg mr Kailee Guerra RN RN ap3 Elyse Woodward RN RN lg3 Adeline Mix 6 Corrections: (The following items were deleted from the chart) 15:38 15:37 Home Meds: None; ap3 ap3 15:39 15:35 Resp 21bpm; Pulse Ox 96%; Temp 98.5F; 103.42 kg; Height 5 ft. 3 in.; BMI: 40.3; ap3 ap3 19:04 15:35 Chief complaint: Patient states: she has been coughing and vomiting for 4 days. ap3 patient states the vomiting occurs when she is vomiting. ap3
--- NOTE | 2024-09-30 19:34 | EDPHYS ---
Physician Documentation [facility] Name: Jenni Doran Age: 54 yrs Sex: Female : 1970 Arrival Date: 09/30/2024 Time: 15:28 Bed 20 Private MD: ED Physician Antonio Nation HPI: 09/30 15:42 This 54 yrs old Female presents to ER via Ambulatory with complaints of kb Vomiting, Cough. 15:42 Patient is a 54-year-old female who presents for cough, runny nose and chills that kb started 4 days ago. Reports posttussive vomiting for the last 4 days as well. . 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 - Infectious Disease History:: Denies. - Social history:: Smoking status: Patient denies any tobacco usage or history of. ROS: 15:42 Constitutional: As per HPI kb Exam: 15:42 Constitutional: This is a well developed, well nourished patient who is awake, alert, kb and in no acute distress. Head/Face: Normocephalic, atraumatic. ENT: Moist Mucous membranes Cardiovascular: Regular rate Respiratory: Respirations even and unlabored. No increased work of breathing. Talking in full sentences Abdomen/GI: Soft, non-tender. No distention Skin: Warm, dry with normal turgor. Normal color. MS/ Extremity: Pulses equal, no cyanosis. Neurovascular intact. Full, normal range of motion. Neuro: Awake and alert, GCS 15, oriented to person, place, time, and situation. Vital Signs: 15:35 Resp 19; Temp 98.5; Pulse Ox 96% ; Weight 103.42 kg; Height 5 ft. 3 in. ; ap3 15:38 BP 127 / 84; Pulse 108; ap3 19:10 BP 122 / 88; Pulse 97; Resp 18 S; Pulse Ox 97% on R/A; lg3 15:35 Body Mass Index 40.39 (103.42 kg, 160.02 cm) ap3 MDM: 15:31 Medical Screening Exam initiated kb 19:32 Differential diagnosis: covid, flu, uri, strep, pneumonia. Data reviewed: vital signs, kb nurses notes. I considered the following discharge prescriptions or medication management in the emergency department I discussed and recommended Over The Counter medications, Antibiotics: At this time antibiotics are not recommended. Counseling: I had a detailed discussion with the patient and/or guardian regarding the historical points, exam findings, and any diagnostic results supporting the discharge/admit diagnosis, lab results, radiology results, the need for outpatient follow up, a family practitioner, to return to the emergency department if symptoms worsen or persist or if there are any questions or concerns that arise at home. 09/30 15:42 Order name: COVID-19 Ag + Flu A+B Ag; Complete Time: 17:59 kb 09/30 15:42 Order name: Group A Streptococcus Rapid; Complete Time: 17:59 kb 09/30 17:59 Order name: Throat Culture EDMS 09/30 15:42 Order name: Chest Pa And Lat (2 Views) XRAY; Complete Time: 17:00 kb Administered Medications: 19:12 Drug: Ondansetron Oral Disintegrating Tablet Oral Disintegrating Tablet 4 mg PO once lg3 Route: PO; 19:46 Follow up: Response: No adverse reaction lg3 19:12 Drug: Tussionex Pennkinetic ER PO Suspension 5 ml PO once Route: PO; lg3 19:46 Follow up: Response: No adverse reaction lg3 Disposition: 10/01 14:37 Co-signature as Attending Physician, Antonio Nation MD I agree with the assessment and ace plan of care. Disposition Summary: 09/30/24 19:33 Discharge Ordered Notes: Location: Home kb Condition: Stable kb Diagnosis - Cough kb Followup: kb - With: Emergency Department - When: As needed - Reason: Worsening of condition Followup: kb - With: Private Physician - When: 2 - 3 days - Reason: Recheck today's complaints, Continuance of care, Re-evaluation by your physician Discharge Instructions: - Discharge Summary Sheet kb - Cough, Adult, [id number] kb Forms: - Medication Reconciliation Form kb - Antibiotic Education kb - Prescription Opioid Use kb - Patient Portal Instructions kb - Leadership Thank You Letter kb Prescriptions: - Zofran 4 mg Oral tablet - take 1 tablet ORAL route every 6 hours As needed; 12 tablet; Refills: 0, kb Product Selection Permitted - Sarasalmariusz Perles 100 mg Oral Capsule - take 1 capsule ORAL route every 8 hours As needed; 15 capsule; Refills: 0, kb Product Selection Permitted Signatures: Dispatcher [employer] EDMS Sridevi Oden, SENIOR ENVIRONMENTAL SCIENTIST-C SENIOR ENVIRONMENTAL SCIENTIST-Antonio Daniels MD MD cha Prokisch, Amanda, RN RN ap3 Elyse Woodward RN RN lg3 Corrections: (The following items were deleted from the chart) 09/30 15:38 15:37 Home Meds: None; ap3 ap3 15:43 15:43 Chest Pa And Lat (2 Views)+RAD.RAD.BRZ ordered. EDMS EDMS 15:43 15:43 COVID-19 Ag + Flu A+B Ag+I.LAB.BRZ ordered. EDMS EDMS 15:43 15:43 Group A Streptococcus Rapid Sc+I.LAB.BRZ ordered. EDMS EDMS
[2024-09-30 20:56] VITALS: TEMP 98.5
[2024-09-30 20:58] VITALS: BP 122/88; O2SAT 97
== END 2024-09-30 19:47 | disposition home or self-care (01) ==
LOC: ER 15:28
DX: R05.9 Cough, unspecified (principal); R11.10 Vomiting, unspecified; Z11.52 Encounter for screening for COVID-19
CPT/HCPCS: 87070; 36415; 71046; 99284; 87428; Q0162

== ENCOUNTER 2025-04-11 13:37 | Emergency (ER) | payer OTHER ==
--- OUTSIDE RECORDS SUMMARY | 2025-04-11 13:43 | XMS REPORT | Continuity of Care Document ---
Author Name Unknown Address [address] [place] [address] [address] [place] [address] [facility] Address [address] [facility] [address] [place] [address] Care Team Providers Care Adult Parole Officer Name Role Phone KAYY GUTIERREZ Attending Clinician UnavailJOSE ANGEL Rao Attending Clinician Unavailable HUSEYIN SAL Attending Clinician Unavailable SCOTT DAS Attending Clinician Unavailable LAB90 Attending Clinician Unavailable MD GIANCARLO Attending Clinician Unavailab michael ANTHONY TECH 1 Attending Clinician Unavailable DEMETRI ZALDIVAR Attending Clinician DARIELA Pugh Attending Clinician Unavailable SHARAD DONIS Attending Clinician MAYCO Pollard Attending Clinician Unavailable Payers Payer Name Policy Type Policy Number Effective Date Expirati on Date Source [facility] DUAL ACCESS OPEN (PPO D-SNP) [id number] 2025 00:00:00 [employer] [place] SELECT PLAN HMO 7 [id number] 2024 00:00:00 AEYUVAL BRANTLEY [facility] O CLIENT RETENTION SPECIALIST 94 ON 9 [id number] 2023 00:00:00 Problems Condition Name Condition Details Condition Category Status Onset Date Resolution Date Last Treatment Date Treating Clinician Comments Source Migraine without aura, not intractabl e Migraine without aura, not intractabl e Disease Active 2024-06 00:00: 00 Maureen kenney Type 2 diabetes mellitus in patient with obesity Type 2 diabetes mellitus in patient with obesity Disease Active 2024-06 00:00: 00 Maureen kenney Type 2 diabetes mellitus associated with morbid obesity Type 2 diabetes mellitus associated with morbid obesity Disease Active 9- 00:00: 00 Maureen Randall - Externa l Morbid obesity Morbid obesity Disease Active 2023-06 0 00:00: 00 Maureen Randall - Externa l 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 2 with diabetic mixed hyperlipid emia Disease Active 09-12 00:00: 00 Maureen Randall - Externa l Severe episode of recurrent major depressive disorder, 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, without psychotic features Disease Active 09-12 00:00: 00 Maureen Cuevaold - Externa l Allergies, Adverse Reactions, Alerts Allergy Name Allergy Type Status Severity Reaction(s) Onset Date Inactive Date Treating Clinician Comments Source Calcium Acetylsa licylate Propensi ty to adverse reaction s Active 12-16 00:00: 00 Other Reaction( s): Not available aspirin Maureen Marsha anne marie Asa-Sacc harin Propensi ty to adverse reaction s to drug Active Other 09-11 00:00: 00 Stomach issue Maureen Randall - Externa l Social History Social Habit Start Date Stop Date Quantity Comments Source History of tobacco use 1992-09-09 00:00:00 Passive smoker Maureen Randall - External Sexual orientation Kemal Randall - External ASSERTION Not Maureen Randall - External Gender identity Sravani Randall - External Alcoholic beverage intake 2025-04-02 00:00:00 2025-04-02 00:00:00 Ex-drinker (finding) Maureen Randall - External Tobacco use and exposure 2023-12-14 00:00:00 2023-12-14 00:00:00 Smokeless tobacco non-user Maureen Randall - External Cigarettes smoked current (pack per day) - Reported 2023-12-14 00:00:00 2023-12-14 00:00:00 Maureen Kathleen External Cigarette pack-years 2023-12-14 00:00:00 2023-12-14 00:00:00 Maureen Randall - External Alcohol intake 2023-09-13 00:00:00 2023-09-13 00:00:00 Ex-drinker (finding) Maureen Randall - External History of Social function 2023-09-12 00:00:00 2023-09-12 00:00:00 Maureen Randall - External Tobacco Comment 2023-09-12 00:00:00 2023-09-12 00:00:00 STOPPED 1997 Maureen Randall - External Alcohol Comment 2023-09-12 00:00:00 2023-09-12 00:00:00 DRANK HEAVILY 1995 Maureen Cuevalisseth - External Sex 2023-08-01 21:32:31 2023-08-01 21:32:31 Female (finding) Maureen Prakash - External Sex assigned at 1970 00:00:00 1970 00:00:00 Maureen Randall - External Smoking Status Start Date Stop Date Source Ex-smoker 2023-12-14 00:00:00 2023-12-14 00:00:00 Kemal Randall - External Medications Ordered Medication Name Filled Medication Name Start Date Stop Date Current Medication? Ordering Clinician Indication Dosage Frequency Signature (SIG) Comments Components Source Tirzepatide 5 MG/0.5ML subcutaneou s Solution Auto-inject or Tirzepatide 5 MG/0.5ML subcutaneou s Solution Auto-inject or 2024-06 00:00: 00 Yes [id number] 5mg Q1W Inject 5 mg into the skin once a week. Maureen Kathleen Externa l Chlorhexidi ne Gluconate 0.12 % mouth/throa t Solution Chlorhexidi ne Gluconate 0.12 % mouth/throa t Solution 03-13 00:00: [address] 15 mL in the mouth or throat 2 times daily. Maureen Kathleen Externa l dexAMETHaso ne 2 MG oral Tablet dexAMETHaso ne 2 MG oral Tablet 03-13 00:00: 00 Yes 2mg Q.[id number] 3D Take 1 tablet (2 mg total) by mouth 3 times daily. Maureen Kathleen Externa l Ondansetron HCl 4 MG oral Tablet Ondansetron HCl 4 MG oral Tablet 03-13 00:00: 00 Yes 4mg Q.[id number] 3D Take 1 tablet (4 mg total) by mouth every 8 hours as needed. Maureen kenney Acetaminoph en-Codeine 300-30 MG oral Tablet Acetaminoph en-Codeine 300-30 MG oral Tablet 03-13 00:00: 00 04-02 00:00 :00 No 1{tbl} Q6H Take 1 tablet by mouth every 6 (six) hours. Maureen kenney Amoxicillin (AMOXIL) 500 MG oral Capsule Amoxicillin (AMOXIL) 500 MG oral Capsule 03-13 00:00: 00 04-02 00:00 :00 No 500mg Q.[id number] 3D Take 1 capsule (500 mg total) by mouth 3 times daily. Maureen kenney Ondansetron (ZOFRAN) 4 MG oral TABLET DISPERSIBLE Ondansetron (ZOFRAN) 4 MG oral TABLET DISPERSIBLE 03-12 00:00: 00 04-02 00:00 :00 No [id number] 4mg Q.[id number] 3D Take 1 tablet (4 mg total) by mouth every 8 hours as needed for nausea. Maureen kenney Vitamin D, Cholecalcif vero, 50 MCG (1999 UT) oral Capsule Vitamin D, Cholecalcif vero, 50 MCG (1999 UT) oral Capsule 03-04 14:40: 47 Yes Take by mouth. Maureen kenney Diethylprop ion HCl 25 MG oral Tablet Diethylprop ion HCl 25 MG oral Tablet 03-04 00:00: 00 Yes [id number] 1{tbl} QD Take 1 tablet by mouth daily. Maureen kenney Blood Pressure Monitoring does not apply Kit Blood Pressure Monitoring does not apply Kit 12-31 00:00: 00 Yes [id number] Use to monitor Blood Pressure twice a day as directed.. Maureen kenney Meloxicam 7.5 MG oral Tablet Meloxicam 7.5 MG oral Tablet 12-31 00:00: 00 Yes 7.5mg QD Take 1 tablet (7.5 mg total) by mouth daily. Maureen kenney Vitamin D, Ergocalcife rol, 1.25 MG (36872 UT) oral Capsule Vitamin D, Ergocalcife rol, 1.25 MG (52080 UT) oral Capsule 12-19 00:00: 00 03-04 00:00 :00 No [id number] Q1W Take 1 capsule (50,000 units total) by mouth once a week. Maureen kenney Atorvastati n Calcium 40 MG oral Tablet Atorvastati n Calcium 40 MG oral Tablet 12-16 00:00: 00 Yes [id number] 3 TAKE 1 TABLET BY MOUTH EVERY DAY. Maureen kenney Cyclobenzap rine HCl 5 MG oral Tablet Cyclobenzap rine HCl 5 MG oral Tablet 12-16 00:00: 00 Yes [id number] 5mg QD Take 1 tablet (5 mg total) by mouth nightly as needed for muscle spasms. Maureen kenney hydroCHLORO thiazide 12.5 MG oral Capsule hydroCHLORO thiazide 12.5 MG oral Capsule 12-16 00:00: 00 Yes [id number] 12.5mg QD Take 1 capsule (12.5 mg total) by mouth daily. Maureen kenney Sumatriptan Succinate 25 MG oral Tablet Sumatriptan Succinate 25 MG oral Tablet 12-16 00:00: 00 Yes [id number] TAKE 1 TABLET BY MOUTH ONCE NEEDED FOR MIGRAINE (MAY REPEAT IN 2 HOURS IF UNRESOLVED . DO NOT EXCEED 200 MG IN 24 HOURS.).. Maureen kenney Continuous Glucose Sensor (FreeStyle Gordon 2 Sensor) does not apply Misc Continuous Glucose Sensor (FreeStyle Gordon 2 Sensor) does not apply Misc 12-16 00:00: 00 Yes [id number] 3 Check glucose continuous ly.. Maureen kenney Celecoxib (CeleBREX) 200 MG oral Capsule Celecoxib (CeleBREX) 200 MG oral Capsule 12-16 00:00: 00 Yes [id number] 200mg Q.5D Take 1 capsule (200 mg total) by mouth 2 times daily as needed for pain. Maureen kenney Synvisc 16 MG/2ML intra-artic ular Solution Prefilled Syringe Synvisc 16 MG/2ML intra-artic ular Solution Prefilled Syringe 5-19 00:00: 00 Yes Maureen kenney Continuous Glucose Sensor (FreeStyle Gordon 2 Sensor) does not apply Misc 4-17 00:00: 00 12-16 00:00 :00 No [id number] 3 Check glucose continuous ly.. Maureen kenney Atorvastati n Calcium 40 MG oral Tablet 4-09 00:00: 00 12-16 00:00 :00 No [id number] 3 TAKE 1 TABLET BY MOUTH EVERY DAY. Maureen kenney Ondansetron HCl 4 MG oral Tablet 4- 00:00: 00 12-16 00:00 :00 No 4mg Q.25D Take 1 tablet (4 mg total) by mouth every 6 hours as needed. Maureen kenney Ketoconazol e 2 % apply externally Cream Ketoconazol e 2 % apply externally Cream 3-20 00:00: 00 Yes [id number] APPLY 0.5 G TO RASH TOPICALLY TWICE A DAY DIRECTED. Maureen kenney Ketoconazol e 2 % apply externally Cream 2-10 00:00: 00 Yes [id number] Apply to rash twice a day. Maureen kenney Dulaglutide 4.5 MG/0.5ML subcutaneou s Solution Auto-inject or Dulaglutide 4.5 MG/0.5ML subcutaneou s Solution Auto-inject or 2-10 00:00: 00 Yes [id number] 3 4.5mg Q1W Inject 4.5 mg into the skin once a week. Maureen kenney hydroCHLORO thiazide 12.5 MG oral Capsule 2-10 00:00: 00 12-16 00:00 :00 No [id number] 12.5mg QD Take 1 capsule (12.5 mg total) by mouth daily. Maureen kenney hydroCHLORO thiazide 25 MG oral Tablet 2- 00:00: 00 08-04 00:00 :00 No [id number] 25mg QD Take 1 tablet (25 mg total) by mouth daily. Maureen kenney Sumatriptan Succinate 25 MG oral Tablet 1- 00:00: 00 12-16 00:00 :00 No [id number] TAKE 1 TABLET BY MOUTH ONCE NEEDED FOR MIGRAINE (MAY REPEAT IN 2 HOURS IF UNRESOLVED . DO NOT EXCEED 200 MG IN 24 HOURS.). Maureen kenney Cyclobenzap rine HCl 5 MG oral Tablet 2023-06 00:00: 00 12-16 00:00 :00 No [id number] 5mg QD TAKE 1 TABLET BY MOUTH NIGHTLY NEEDED FOR MUSCLE SPASMS Maureen kenney Topiramate 50 MG oral Tablet 2023-06 00:00: 00 08-04 00:00 :00 No [id number] 50mg Q.5D TAKE 1 TABLET BY MOUTH 2 TIMES DAILY Maureen kenney Topiramate 50 MG oral Tablet 2023-06 00:00: 00 05-28 00:00 :00 No [id number] 50mg QD Take 1 tablet (50 mg total) by mouth daily. Maureen kenney Topiramate 50 MG oral Tablet 2023-06 00:00: 00 Yes [id number] 50mg QD Take 1 tablet (50 mg total) by mouth daily. Maureen kenney Continuous Glucose Sensor (FreeStyle Gordon 2 Sensor) does not apply [facility] 2023-06 00:00: 00 Yes [id number] 3 Check glucose continuous ly.. Maureen kenney Continuous Glucose Plug Stitcher (FreeStyle Gordon 2 [place]) does not apply Device Continuous Glucose Plug Stitcher (FreeStyle Gordon 2 [place]) does not apply Device 2023-06 00:00: 00 Yes [id number] 3 Check glucose continuous ly.. Maureen kenney Dulaglutide 4.5 MG/0.5ML subcutaneou s Solution Auto-inject or 2023-06 00:00: 00 08-04 00:00 :00 No [id number] 3 4.5mg Q1W Inject 4.5 mg into the skin once a week. Maureen kenney hydroCHLORO thiazide 12.5 MG oral Capsule 2023-06 00:00: 00 05-19 00:00 :00 No [id number] 12.5mg QD TAKE 1 CAPSULE BY MOUTH EVERY DAY Maureen kenney Trulicity 3 MG/0.5ML subcutaneou s Solution Auto-inject or 2023-06 00:00: 00 05-19 00:00 :00 No Maureen kenney Trulicity 3 MG/0.5ML subcutaneou s Solution Pen-injecto r 2023-06 00:00: 00 Yes [id number] 3 3mg Q1W Inject 3 mg into the skin once a week. Maureen kenney hydroCHLORO thiazide 12.5 MG oral Capsule 2023-06 00:00: 00 Yes [id number] 12.5mg QD Take 1 capsule (12.5 mg total) by mouth daily. Maureen kenney Cyclobenzap rine HCl 5 MG oral Tablet 2023-06 00:00: 00 Yes [id number] 5mg QD Take 1 tablet (5 mg total) by mouth nightly as needed for muscle spasms. Maureen kenney Trulicity 3 MG/0.5ML subcutaneou s Solution Pen-injecto r 2023-06 00:00: 00 05-19 00:00 :00 No [id number] 3 3mg Q1W Inject 3 mg into the skin once a week. Maureen kenney Topiramate 25 MG oral Tablet 03-06 00:00: 00 04-21 00:00 :00 No 25mg Q.5D Take 1 tablet (25 mg total) by mouth 2 times daily. Maureen kenney Dulaglutide (Trulicity) 1.5 MG/0.5ML subcutaneou s Solution Pen-injecto r 2024-0 9-11 00:00: 00 04-21 00:00 :00 No [id number] 3 1.5mg Q1W Inject 1.5 mg into the skin once a week. Maureen kenney Ondansetron (ZOFRAN) 4 MG oral TABLET DISPERSIBLE Ondansetron (ZOFRAN) 4 MG oral TABLET DISPERSIBLE 01-27 00:00: 00 Yes [id number] 4mg Q.[id number] 3D Take 1 tablet (4 mg total) by mouth every 8 hours as needed for nausea. Maureen kenney ALBUTEROL HFA 108 (90 Base) MCG/ACT IN AERS ALBUTEROL HFA 108 (90 Base) MCG/ACT IN AERS 01-27 00:00: 00 Yes [id number] 2{puff} Q.25D inhale 2 puffs by mouth every 6 hours as needed for wheeze Maureen kenney Trulicity 0.75 MG/0.5ML subcutaneou s Solution Pen-injecto r 12-13 00:00: 00 Yes [id number] 3 .75mg Q1W Inject 0.75 mg into the skin once a week. Maureen kenney Topiramate 50 MG oral Tablet 12-13 00:00: 00 05-19 00:00 :00 No [id number] 50mg Q.5D Take 1 tablet (50 mg total) by mouth 2 times daily. Maureen kenney Metformin HCl 1000 MG oral Tablet 12-12 00:00: 00 12-13 00:00 :00 No [id number] 3 1000mg Take 1 tablet (1,000 mg total) by mouth in the morning and 1 tablet (1,000 mg total) in the evening. Take with meals. Maureen kenney Fluoxetine HCl 20 MG oral Capsule 12-06 00:00: 00 04-21 00:00 :00 No [id number] 20mg QD TAKE 1 CAPSULE BY MOUTH EVERY DAY Maureen kenney Topiramate 25 MG oral Tablet 12-06 00:00: 00 12-13 00:00 :00 No [id number] 25mg TAKE 1 TABLET (25 MG TOTAL) BY MOUTH 2 TIMES DAILY. Maureen kenney Fluoxetine HCl 20 MG oral Capsule 11-13 00:00: 00 Yes [id number] 20mg Take 1 capsule (20 mg total) by mouth daily. Maureen kenney Topiramate 25 MG oral Tablet 11-13 00:00: 00 Yes [id number] 25mg Take 1 tablet (25 mg total) by mouth 2 times daily. Maureen kenney Trulicity 3 MG/0.5ML subcutaneou s Solution Pen-injecto r 11-13 00:00: 00 Yes [id number] 3 3mg Inject 3 mg into the skin once a week. Maureen kenney Ondansetron (ZOFRAN) 4 MG oral TABLET DISPERSIBLE 11-13 00:00: 00 Yes [id number] 4mg Q.[id number] 3D Take 1 tablet (4 mg total) by mouth every 8 hours as needed for nausea. Maureen kenney Sumatriptan Succinate 25 MG oral Tablet 11-11 00:00: 00 Yes [id number] 25mg Take 1 tablet (25 mg total) by mouth once as needed for migraine (May repeat in 2 hours if unresolved . Do not exceed 200 mg in 24 hours.). Maureen kenney Dulaglutide (Trulicity) 1.5 MG/0.5ML subcutaneou s Solution Pen-injecto r 11-11 00:00: 00 11-13 00:00 :00 No [id number] 3 1.5mg Inject 1.5 mg into the skin once a week. Maureen kenney Sertraline HCl 25 MG oral Tablet 11-11 00:00: 00 11-13 00:00 :00 No [id number] 25mg Take 1 tablet (25 mg total) by mouth daily. Maureen kenney Sumatriptan Succinate 25 MG oral Tablet 10-09 00:00: 00 Yes [id number] 25mg Take 1 tablet (25 mg total) by mouth once as needed for migraine (May repeat in 2 hours if unresolved . Do not exceed 200 mg in 24 hours.). Maureen kenney Sertraline HCl 25 MG oral Tablet 10-09 00:00: 00 Yes [id number] 25mg Take 1 tablet (25 mg total) by mouth daily. Maureen kenney Trulicity 1.5 MG/0.5ML subcutaneou s Solution Pen-injecto r 10-09 00:00: 00 Yes [id number] 3 1.5mg Inject 1.5 mg into the skin once a week. Maureen kenney Ondansetron (ZOFRAN) 4 MG oral TABLET DISPERSIBLE 10-09 00:00: 00 11-13 00:00 :00 No [id number] 4mg Q.[id number] 3D Take 1 tablet (4 mg total) by mouth every 8 hours as needed for nausea. Maureen kenney Albuterol HFA 108 (90 Base) MCG/ACT IN AERS 10-07 00:00: 00 Yes [id number] 2{puff} Q.25D Inhale 2 puffs into the lungs every 6 hours as needed for wheezing. Maureen kenney Sertraline HCl 50 MG oral Tablet 10-07 00:00: 00 10-09 00:00 :00 No [id number] 50mg TAKE 1 TABLET BY MOUTH EVERY DAY Maureen kenney OZEMPIC (1 mg/dose) 4 mg/3 mL SQ Solution Pen-Injecto r 09-17 08:57: 19 09-17 00:00 :00 No INJECT 1 MO SUBCUTANEO USLY ONCE A WEEK Maureen kenney Vitamin D, Ergocalcife rol, 1.25 MG (10692 UT) oral Capsule 09-17 00:00: 00 04-21 00:00 :00 No [id number] 57719V Q1W Take 1 capsule (50,000 units total) by mouth once a week. Maureen kenney Fluticasone -Salmeterol (Advair Diskus) 100-50 MCG/ACT inhalation AEROSOL POWDER, BREATH ACTIVATED 09-12 17:13: 47 09-12 00:00 :00 No Maureen kenney Exenatide (Byetta 10 MCG Pen) 10 MCG/0.04ML subcutaneou s Solution Pen-injecto r 09-12 17:13: 47 09-12 00:00 :00 No Maureen kenney Pantoprazol e Sodium 40 MG oral Tablet Delayed Response 09-12 17:13: 47 09-12 00:00 :00 No Maureen kenney Tramadol HCl (ULTRAM) 50 MG oral Tablet 09-12 17:13: 47 09-12 00:00 :00 No Maureen kenney Diclofenac Sodium 1 % apply externally Gel 09-12 17:10: 59 09-12 00:00 :00 No Maureen kenney Sertraline HCl 50 MG oral Tablet 09-12 17:10: 59 09-12 00:00 :00 No Maureen kenney Sumatriptan Succinate 50 MG oral Tablet 09-12 17:06: 47 09-12 00:00 :00 No Maureen kenney Atorvastati n Calcium 40 MG oral Tablet 09-12 00:00: 00 Yes [id number] 3 Take 1 tablet every day by oral route.. Maureen kenney Sertraline HCl 50 MG oral Tablet 09-12 00:00: 00 Yes [id number] 50mg Take 1 tablet (50 mg total) by mouth daily. Maureen kenney Albuterol HFA 108 (90 Base) MCG/ACT IN AERS 09-12 00:00: 00 Yes [id number] 2{puff} Q.25D Inhale 2 puffs into the lungs every 6 hours as needed for wheezing. Maureen kenney Trulicity 0.75 MG/0.5ML subcutaneou s Solution Pen-injecto r 09-12 00:00: 00 10-09 00:00 :00 No [id number] 3 .75mg Inject 0.75 mg into the skin once a week. Maureen kenney Diclofenac Sodium 1 % apply externally Gel 09-12 00:00: 00 10-09 00:00 :00 No [id number] 1{appli cation} Q.5D Apply 1 Applicatio n topically 2 times daily as needed. Maureen kenney Sumatriptan Succinate 25 MG oral Tablet 09-12 00:00: 00 10-09 00:00 :00 No [id number] 25mg Take 1 tablet (25 mg total) by mouth once as needed for migraine (May repeat in 2 hours if unresolved . Do not exceed 200 mg in 24 hours.). Maureen kenney Metformin HCl 500 MG oral Tablet 09-12 00:00: 00 09-17 00:00 :00 No [id number] 3 500mg Take 1 tablet (500 mg total) by mouth daily (with breakfast) . Maureen kenney Meloxicam 7.5 MG oral Tablet 2022-06 2- 00:00: 00 09-12 00:00 :00 No Take 1 tablet every day by oral route. Maureen kenney Vitamin D, Ergocalcife rol, 1.25 MG (98205 UT) oral Capsule 2022-06 0 00:00: 00 09-12 00:00 :00 No Take 1 capsule every week by oral route. Maureen kenney Atorvastati n Calcium 40 MG oral Tablet 2022-06 0 00:00: 00 09-12 00:00 :00 No Take 1 tablet every day by oral route. Maureen kenney Cyanocobala min 1000 MCG sublingual SL Tab 2022-06 0 00:00: 00 09-12 00:00 :[address] 1 tablet every day by sublingual route. Maureen kenney Folic Acid 1 MG oral tablet 2022-06 030 00:00: 00 09-12 00:00 :00 No Take 1 tablet every day by oral route. Maureen kenney Immunizations Ordered Immunization Name Filled Immunization Name Date Status Comments Source Pneumococcal Vaccine, Conjugate 21 Pneumococcal Vaccine, Conjugate 21 2025-03-28 00:00:00 Completed Maureen Randall - External Influenza Virus Vaccine, Egg Free Influenza Virus Vaccine, Egg Free 2025-03-28 00:00:00 Completed Maureen Randall - External Influenza Virus Vaccine, age 6 months and up Influenza Virus Vaccine, age 6 months and up 2025-03-28 00:00:00 Completed Maureen Kathleen External Pneumococcal Vaccine, Polysaccharide Pneumococcal Vaccine, Polysaccharide 2025-03-28 00:00:00 Completed Maureen Randall - External Covid-19 Vaccine (Caperfly), Mrna-lnp, Josue Protein, Pf, 30mcg/0.3ml,IM Covid-19 Vaccine (Caperfly), Mrna-lnp, Josue Protein, Pf, 30mcg/0.3ml,IM 2025-03-28 00:00:00 Completed Maureen Randall - External Shingles SQ (Zostavax) Shingles SQ (Zostavax) 2024-06-23 00:00:00 Completed Maureen Randall - External Shingles IM (Shingrix) Shingles IM (Shingrix) 2024-06-23 00:00:00 Completed Maureen Randall - External Influenza Virus Vaccine, age 6 months and up Influenza Virus Vaccine, age 6 months and up 2024-04-21 00:00:00 Completed Maureen Randall - External Shingles SQ (Zostavax) Shingles SQ (Zostavax) 2024-04-21 00:00:00 Completed Maureen Randall - External FLUCELVAX TRIVALENT PF FLUCELVAX TRIVALENT PF 2024-04-21 00:00:00 Completed Maureen Randall - External Shingles IM (Shingrix) Shingles IM (Shingrix) 2024-04-21 00:00:00 Completed Maureen Randall - External Influenza Virus Vaccine, No Preserv, age 6 months and up Influenza Virus Vaccine, No Preserv, age 6 months and up 2022-05-29 00:00:00 Completed Maureen Seybold - External Influenza Virus Vaccine, age 6 months and up Influenza Virus Vaccine, age 6 months and up 2022-05-29 00:00:00 Completed Maureen Seybold - External Covid-19 Vaccine Moderna (Spikevax), Mrna-lnp, Josue Protein, Pf Covid-19 Vaccine Moderna (Spikevax), Mrna-lnp, Josue Protein, Pf 2022-05-29 00:00:00 Completed Maureen Seybold - External Covid-19 Vaccine (UNSPECIFIED) Covid-19 Vaccine (UNSPECIFIED) 2022-01-23 00:00:00 Completed Maureen Seybold - External Covid-19 Vaccine Moderna (Spikevax), Mrna-lnp, Josue Protein, Pf Covid-19 Vaccine Moderna (Spikevax), Mrna-lnp, Josue Protein, Pf 2022-01-23 00:00:00 Completed Maureen Millerybold - External Influenza Virus Vaccine, No Preserv, age 6 months and up Influenza Virus Vaccine, No Preserv, age 6 months and up 2021-03-28 00:00:00 Completed Maureen Millerybold - External Influenza Virus Vaccine, Split, up to age 3 Influenza Virus Vaccine, Split, up to age 3 2021-03-25 00:00:00 Completed Maureen Seybold - External Covid-19 Vaccine (UNSPECIFIED) Covid-19 Vaccine (UNSPECIFIED) 2020-10-21 00:00:00 Completed Maureen Seybold - External Covid-19 Vaccine Moderna (Spikevax), Mrna-lnp, Josue Protein, Pf Covid-19 Vaccine Moderna (Spikevax), Mrna-lnp, Josue Protein, Pf 2020-10-21 00:00:00 Completed Maureen Seybold - External Covid-19 Vaccine (UNSPECIFIED) Covid-19 Vaccine (UNSPECIFIED) 2020-09-23 00:00:00 Completed Maureen Seybold - External Covid-19 Vaccine Moderna (Spikevax), Mrna-lnp, Josue Protein, Pf Covid-19 Vaccine Moderna (Spikevax), Mrna-lnp, Josue Protein, Pf 2020-09-23 00:00:00 Completed Maureen Millerkrystleold - External Influenza Virus Vaccine, Unspecified Formulation Influenza Virus Vaccine, Unspecified Formulation 2020-05-28 00:00:00 Completed Maureen Cuevalisseth - External Influenza Virus Vaccine, No Preserv, age 6 months and up Influenza Virus Vaccine, No Preserv, age 6 months and up 2019-07-31 00:00:00 Completed Maureen Anayold - External Influenza Virus Vaccine, age 6 months and up Influenza Virus Vaccine, age 6 months and up 2019-07-31 00:00:00 Completed Maureen Anayold - External Hep A/ Hep B Combo Hep A/ Hep B Combo 2018-11-13 00:00:00 Completed Maureen Seybold - External Hep A/ Hep B Combo Hep A/ Hep B Combo 2018-05-13 00:00:00 Completed Maureen Cuevalisseth - External Influenza Virus Vaccine, age 6 months and up Influenza Virus Vaccine, age 6 months and up 2018-04-11 00:00:00 Completed Maureen Prakash - External Hep A/ Hep B Combo Hep A/ Hep B Combo 2018-04-10 00:00:00 Completed Maureen Millerrocky - External Tdap- (Boostrix, Adacel) Tdap- (Boostrix, Adacel) 2017-02-12 00:00:00 Completed Maureen Cuevalisseth - External Influenza Virus Vaccine, Split, up to age 3 Influenza Virus Vaccine, Split, up to age 3 2016-07-31 00:00:00 Completed Maureen Randall - External Pneumococcal Vaccine, Polysaccharide Pneumococcal Vaccine, Polysaccharide 2016-07-31 00:00:00 Completed Maureen Cuevalisseth - External Tdap- (Boostrix, Adacel) Tdap- (Boostrix, Adacel) 2015-08-06 00:00:00 Completed Maurene Cuevalisseth - External Influenza Virus Vaccine, Whole Virus Influenza Virus Vaccine, Whole Virus 2015-08-06 00:00:00 Completed Maureen Randall - External Influenza Virus Vaccine, age 6 months and up Influenza Virus Vaccine, age 6 months and up 2015-08-06 00:00:00 Completed Maureen Cuevaold - External Influenza Virus Vaccine, Split, up to age 3 Unknown Completed Maureen Cuevalisseth - External Covid-19 Vaccine (UNSPECIFIED) Unknown Completed Maureen Seybold - External Tdap- (Boostrix, Adacel) Unknown Completed Maureen Seybold - External Influenza Virus Vaccine, Split, up [...] up Unknown Completed Maureen Seybold - External Influenza Virus Vaccine, Whole Virus Unknown Completed Maureen Seybold - External Hep A/ Hep B Combo Unknown Completed Kemal rezay Seybold - External Pneumococcal Vaccine, Polysaccharide Unknown Completed Maureen Seybold - External Influenza Virus Vaccine, Split, up [...] up Unknown Completed Maureen Seybold - External Influenza Virus Vaccine, Whole Virus Unknown Completed Maureen Seybold - External Hep A/ Hep B Combo Unknown Completed K elsey Seybold - External Pneumococcal Vaccine, Polysaccharide Unknown Completed Maureen Seybold - External Influenza Virus Vaccine, Split, up [...] up Unknown Completed Maureen Seybold - External Influenza Virus Vaccine, Whole Virus Unknown Completed Maureen Seybold - External Hep A/ Hep B Combo Unknown Completed K elsey Seybold - External Pneumococcal Vaccine, Polysaccharide Unknown Completed Maureen Seybold - External Influenza Virus Vaccine, age 6 [...] up Unknown Completed Maureen Seybold - External Influenza Virus Vaccine, Whole Virus Unknown Completed Maureen Seybold - External Hep A/ Hep B Combo Unknown Completed K elsey Seybold - External Pneumococcal Vaccine, Polysaccharide Unknown Completed Maureen Seybold - External Shingles SQ (Zostavax) Unknown Completed Maureen Seybold - External Influenza Virus Vaccine, age 6 [...] up Unknown Completed Maureen Seybold - External Influenza Virus Vaccine, Whole Virus Unknown Completed Maureen Seybold - External Hep A/ Hep B Combo Unknown Completed K elsey Seybold - External Pneumococcal Vaccine, Polysaccharide Unknown Completed Maureen Seybold - External Shingles SQ (Zostavax) Unknown Completed Maureen Seybold - External FLUCELVAX TRIVALENT PF Unknown Completed Maureen Seybold - External Shingles IM (Shingrix) Unknown Completed Maureen Seybold - External Influenza Virus Vaccine, age 6 [...] up Unknown Completed Maureen Seybold - External Influenza Virus Vaccine, [facility] Virus [facility] Completed Kemal elsey Seybold - External Pneumococcal Vaccine, Polysaccharide Unknown Completed Maureen Seybold - External Shingles SQ (Zostavax) Unknown Completed Maureen Seybold - External FLUCELVAX TRIVALENT PF Unknown Completed Maureen Seybold - External Shingles IM (Shingrix) Unknown Completed Maureen Seybold - External Influenza Virus Vaccine, age 6 [...] up Unknown Completed Maureen Seybold - External Influenza Virus Vaccine, Whole Virus Unknown Completed Maureen Seybold - External Hep A/ Hep B Combo Unknown Completed K elsey Seybold - External Pneumococcal Vaccine, Polysaccharide Unknown Completed Maureen Seybold - External Shingles SQ (Zostavax) Unknown [facility] FLUCELVAX TRIVALENT PF Unknown Completed Maureen Seybold - External Shingles IM (Shingrix) Unknown Completed Maureen Seybold - External Influenza Virus Vaccine, age 6 months and up Unknown Completed Maureen ybold - External Covid-19 Vaccine (UNSPECIFIED) Unknown Completed Maureen Millerold - External Tdap- (Boostrix, Adacel) Unknown [facility]- (Boostrix, Adacel) Unknown Completed Maureen Seybold - External Covid-19 Vaccine Moderna (Spikevax), Mrna-lnp, Josue Protein, Pf Unknown Completed Maureen Seybold - External Influenza Virus Vaccine, Unspecified Formulation Unknown Completed Maureen Seold - External Influenza Virus Vaccine, No Preserv, age 6 months and up Unknown Completed Maureen Seybold - External Influenza Virus Vaccine, Whole Virus Unknown Completed Maureen Seybold - External Hep A/ Hep B Combo Unknown Completed [facility] - External Pneumococcal Vaccine, Polysaccharide Unknown Completed Maureen Millerybold - External Shingles SQ (Zostavax) Unknown Completed Maureen Seybold - External FLUCELVAX TRIVALENT PF Unknown Completed Maureen Seybold - External Shingles IM (Shingrix) Unknown Completed Maureen Seybold - External Influenza Virus Vaccine, Split, up to age 3 Unknown Completed Maureen Seybold - External Covid-19 Vaccine (UNSPECIFIED) Unknown Completed Maureen Millerold - External Tdap- (Boostrix, Adacel) Unknown [facility] Influ[facility] Virus Vaccine, Split, up to age 3 Unknown Completed Maureen Seybold - External Covid-19 Vaccine (UNSPECIFIED) Unknown Completed Maureen Seybold - External Tdap- (Boostrix, Adacel) Unknown Completed Maureen Seybold - External Vital Signs Vital Name Observation Time Observation Value Comments S ource Systolic blood pressure 2025-04-02 14:22:00 134 mm[Hg] Maureen Saldaña ld - External Diastolic blood pressure 2025-04-02 14:22:00 82 mm[Hg] Maureen Cuevao ld - External Heart rate 2025-04-02 14:22:00 117 /min Radha Randall - External Body temperature 2025-04-02 14:22:00 36.5 Mariana Maureen Seybold - External Body height 2025-04-02 14:22:00 160 cm Sravani ey Seybold - External Body weight 2025-04-02 14:22:00 104.781 kg Sravani ey Seybold - External BMI 2025-04-02 14:22:00 40.92 kg/m2 Sravani ey Seybold - External Oxygen saturation in Arterial blood by Pulse oximetry 2025-04-02 14:22:00 98 /min Maureen Seybo ld - External Systolic blood pressure 2025-03-04 14:32:00 130 mm[Hg] Maureen Seybo ld - External Diastolic blood pressure 2025-03-04 14:32:00 80 mm[Hg] Maureen Seybo ld - External Heart rate 2025-03-04 14:32:00 111 /min Kelse y Seybold - External Body temperature 2025-03-04 14:32:00 37 Mariana Maureen Seybold - External Respiratory rate 2025-03-04 14:32:00 15 /min Maureen Seybold - External Body height 2025-03-04 14:32:00 160 cm Sravani ey Seybold - External Body weight 2025-03-04 14:32:00 104.237 kg Sravani ey Seybold - External BMI 2025-03-04 14:32:00 40.71 kg/m2 Sravani ey Seybold - External Oxygen saturation in Arterial blood by Pulse oximetry 2025-03-04 14:32:00 98 /min Maureen Seybo ld - External Systolic blood pressure 2024-12-16 19:17:00 124 mm[Hg] Maureen Seybo ld - External Diastolic blood pressure 2024-12-16 19:17:00 72 mm[Hg] Maureen Seybo ld - External Heart rate 2024-12-16 19:17:00 114 /min Kelse y Seybold - External Body temperature 2024-12-16 19:17:00 37.33 Mariana Maureen Seybold - External Respiratory rate 2024-12-16 19:17:00 14 /min Maureen Seybold - External Body height 2024-12-16 19:17:00 160 cm Sravani ey Seybold - External Body weight 2024-12-16 19:17:00 106.595 kg Sravani ey Seybold - External BMI 2024-12-16 19:17:00 41.63 kg/m2 Sravani ey Seybold - External Oxygen saturation in Arterial blood by Pulse oximetry 2024-12-16 19:17:00 97 /min Maureen Seybo ld - External Systolic blood pressure 2024-08-04 20:57:00 124 mm[Hg] Maureen Seybo ld - External Diastolic blood pressure 2024-08-04 20:57:00 74 mm[Hg] Maureen Seybo ld - External Heart rate 2024-08-04 20:57:00 112 /min Kelse y Seybold - External Body temperature 2024-08-04 20:57:00 36.56 Mariana Maureen Seybold - External Respiratory rate 2024-08-04 20:57:00 15 /min Maureen Seybold - External Body height 2024-08-04 20:57:00 160 cm Sravani ey Seybold - External Body weight 2024-08-04 20:57:00 103.874 kg Sravani ey Seybold - External BMI 2024-08-04 20:57:00 40.57 kg/m2 Sravani ey Seybold - External Oxygen saturation in Arterial blood by Pulse oximetry 2024-08-04 20:57:00 95 /min Maureen Seybo ld - External Systolic blood pressure 2024-05-19 16:34:00 102 mm[Hg] Maureen Seybo ld - External Diastolic blood pressure 2024-05-19 16:34:00 74 mm[Hg] Maureen Seybo ld - External Heart rate 2024-05-19 16:34:00 [...] External Heart rate 2024-04-21 19:02:00 98 /min Kelse y Seybold - External Body temperature 2024-04-21 [...] Body temperature 2023-09-13 21:25:00 36.83 Mariana Maureen Seybold - External Respiratory rate 2023-09-13 21:25:00 18 /min Maureen Seybold - External Body height 2023-09-13 21:25:00 160 cm Sravani ey Seybold - External Body weight 2023-09-13 21:25:00 104.497 kg Sravani ey Seybold - External BMI 2023-09-13 21:25:00 40.81 kg/m2 Sravani ey Seybold - External Oxygen saturation in Arterial blood by Pulse oximetry 2023-09-13 21:25:00 97 /min Maureen Sedavid ld - External Plan of Care Planned Activity Planned Date Details Comments Source Procedure 2025-06-17 00:00:00 HEMOGLOBIN (HB) A1C Maureen Sekrystlelisseth - External Encounters Start Date/Time End Date/Time Encounter Type Admission Type Attending [facility] Care Department Encounter ID Source 2025-04-30 15:30:00 2025-04-30 15:30:00 Outpatient KAYY GUTIERREZ [id number] [facility] 2025-04-17 14:00:00 2025-04-17 14:00:00 Outpatient MAUREEN EUBANKS [id number] [facility] 2025-04-17 14:00:00 2025-04-17 14:00:00 Outpatient MAUREEN EUBANKS [id number] [facility] 2025-04-17 09:20:00 2025-04-17 09:20:00 [facility] [id number] [facility]25-04-[facility] 09:20:00 2025-04-17 09:20:00 Outpatient MAUREEN EUBANKS [id number] [facility] 2025-04-10 00:00:00 2025-04-10 00:00:00 Outpatient JOSE ANGEL ACEVES [id number] [facility] 2025-04-07 00:00:00 2025-04-07 00:00:00 Outpatient MAUREEN EUBANKS [id number] [facility] 2025-04-02 14:30:00 2025-04-02 14:30:00 Outpatient KAYY GUTIERREZ [id number] [facility] 2025-04-01 15:00:00 2025-04-01 15:00:00 Outpatient KAYY GUTIERREZ [id number] [facility] 2025-03-31 00:00:00 2025-03-31 00:00:00 Outpatient KAYY GUTIERREZ [id number] [facility] 2025-03-30 00:00:00 2025-03-30 00:00:00 Outpatient IRINEO, KAYY EUBANKS MAUREEN [id number] [facility] 2025-03-18 00:00:00 2025-03-18 00:00:00 Outpatient IRINEO, KAYY EUBANKS MAUREEN [id number] [facility] 2025-03-18 00:00:00 2025-03-18 00:00:00 Outpatient IRINEO, KAYY EUBANKS MAUREEN [id number] [facility] 2025-03-16 00:00:00 2025-03-16 00:00:00 Outpatient IRINEO, KAYY SWAINRAFAELA EUBANKS [id number] [facility] 2025-03-13 00:00:00 2025-03-13 00:00:00 Outpatient IRINEO, KAYY EUBANKS MAUREEN [id number] [facility] 2025-03-12 00:00:00 2025-03-12 00:00:00 Outpatient IRINEO, KAYY EUBANKS MAUREEN [id number] [facility] 2025-03-12 00:00:00 2025-03-12 00:00:00 Outpatient IRINEO, KAYY EUBANKS MAUREEN [id number] [facility] 2025-03-04 14:30:00 2025-03-04 14:30:00 Outpatient IRINEO, KAYY SWAINRAFAELA EUBANKS [id number] [facility] 2025-01-12 00:00:00 2025-01-12 00:00:00 Outpatient YASAnne Marie HUSEYIN EUBANKS [id number] [facility] 2024-12-29 00:00:00 2024-12-29 00:00:00 Outpatient HUSEYIN SAL [id number] [facility] 2024-12-17 00:00:00 2024-12-17 00:00:00 Outpatient SCOTT DAS [id number] [facility] 2024-12-17 00:00:00 2024-12-17 00:00:00 Outpatient MAUREEN EUBANKS [id number] [facility] P[facility] 2024-12-16 15:45:00 2024-12-16 15:45:00 Outpatient LAB90 MAUREEN EUBANKS [id number] [facility] P[facility] 2024-12-16 14:30:00 2024-12-16 14:30:00 Outpatient JONELLE HUSEYIN MAUREEN EUBANKS [id number] [facility] 2024-12-12 09:00:00 2024-12-12 09:00:00 Outpatient JONELLE HUSEYIN EUBANKS [id number] [facility] P[facility] 2024-12-02 00:00:00 2024-12-02 00:00:00 Outpatient MAUREEN EUBANKS [id number] [facility] y[facility] 2024-11-25 00:00:00 2024-11-25 00:00:00 Outpatient SCOTT DAS [id number] [facility] y[facility] 2024-11-21 00:00:00 2024-11-21 00:00:00 Outpatient MD MAUREEN DEE [id number] [facility] Prakash 2024-11-20 15:30:00 2024-11-20 15:30:00 Outpatient SCOTT DAS [id number] [facility] 2024-11-20 15:30:00 2024-11-20 15:30:00 Outpatient SCOTT DAS [id number] [facility] Anaylisseth 2024-11-03 16:00:00 2024-11-03 16:00:00 Outpatient KAREN ANTHONY [id number] [facility] 2024-11-03 00:00:00 2024-11-03 00:00:00 Outpatient MD MAUREEN DEE [id number] [facility] 2024-10-07 00:00:00 2024-10-07 00:00:00 Outpatient HUSEYIN SAL [id number] [facility] 2024-10-06 00:00:00 2024-10-06 00:00:00 Outpatient JOSE ANGEL ACEVES [id number] [facility] 2024-10-03 08:50:00 2024-10-03 08:50:00 Outpatient LAB90 MAUREEN EUBANKS [id number] [facility] 2024-09-26 15:50:00 2024-09-26 15:50:00 Outpatient LAB90 MAUREEN EUBANKS [id number] [facility] 2024-09-10 00:00:00 2024-09-10 00:00:00 Outpatient HUNDL, HUSEYIN EUBANKS [id number] [facility] 2024-09-06 00:00:00 2024-09-06 00:00:00 Outpatient HUNDL, HUSEYIN EUBANKS [id number] [facility] 2024-09-05 00:00:00 2024-09-05 00:00:00 Outpatient HUNDL, HUSEYIN EUBANKS [id number] [facility] 2024-09-04 00:00:00 2024-09-04 00:00:00 Outpatient HUNDL, HUSEYIN EUBANKS [id number] [facility] 2024-09-04 00:00:00 2024-09-04 00:00:00 Outpatient HUNDL, HUSEYIN EUBANKS [id number] [facility] 2024-09-02 00:00:00 2024-09-02 00:00:00 Outpatient HUNDL, HUSEYIN EUBANKS [id number] [facility] 2024-08-21 00:00:00 2024-08-21 00:00:00 Outpatient HUNDL, HUSEYIN EUBANKS [id number] [facility] 2024-08-13 00:00:00 2024-08-13 00:00:00 Outpatient PREZAS, JOSE ANGEL EUBANKS [id number] [facility] 2024-08-04 15:00:00 2024-08-04 15:00:00 Outpatient HUNDL, HUSEYIN EUBANKS [id number] [facility] 2024-07-21 00:00:00 2024-07-21 00:00:00 Outpatient HUNDL, HUSEYIN EUBANKS [id number] [facility] 2024-06-24 00:00:00 2024-06-24 00:00:00 Outpatient HUNDL, HUSEYIN EUBANKS [id number] [facility] 2024-06-20 00:00:00 2024-06-20 00:00:00 Outpatient HUNDL, HUSEYIN EUBANKS [id number] [facility] 2024-06-13 10:00:00 2024-06-13 10:00:00 Outpatient HUNDL, HUSEYIN EUBANKS [id number] [facility] 2024-06-06 00:00:00 2024-06-06 00:00:00 Outpatient HUNDAnne Marie, HUSEYIN EUBANKS [id number] [facility] 2024-06-01 00:00:00 2024-06-01 00:00:00 Outpatient HUNDL, HUSEYIN EUBANKS [id number] [facility] 2024-05-28 15:00:00 2024-05-28 15:00:00 Outpatient HUNDL, HUSEYIN EUBANKS [id number] [facility] 2024-05-28 14:00:00 2024-05-28 14:00:00 Outpatient JONELLE, HUSEYIN EUBANKS [id number] [facility] 2024-05-20 09:10:00 2024-05-20 09:10:00 Outpatient MAUEREN EUBANKS [id number] [facility] 2024-05-20 09:05:00 2024-05-20 09:05:00 Outpatient MAUREEN EUBANKS [id number] [facility] 2024-05-20 09:00:00 2024-05-20 09:00:00 Outpatient MAUREEN EUBANKS [id number] [facility] 2024-05-19 10:45:00 2024-05-19 10:45:00 Outpatient PREZASJOSE ANGEL [id number] [facility] 2024-05-14 00:00:00 2024-05-14 00:00:00 Outpatient HUNDAnne Marie HUSEYIN EUBANKS [id number] [facility] 2024-05-13 00:00:00 2024-05-13 00:00:00 Outpatient HUNDL HUSEYIN EUBANKS [id number] [facility] 2024-04-21 14:45:00 2024-04-21 14:45:00 Outpatient LAB90 MAUREEN EUBANKS [id number] [facility] 2024-04-21 14:00:00 2024-04-21 14:00:00 Outpatient HUNDL, HUSEYIN MAUREEN EUBANKS [id number] [facility] 2024-03-12 00:00:00 2024-03-12 00:00:00 Outpatient PREZAS, JOSE ANGEL MAUREEN EUBANKS [id number] [facility] 2024-03-04 00:00:00 2024-03-04 00:00:00 Outpatient PREZAS, JOSE ANGEL EUBANKS [id number] [facility] 2024-03-03 00:00:00 2024-03-03 00:00:00 Outpatient HUNDL, HUSEYIN MAUREEN EUBANKS [id number] [facility] 2024-02-02 00:00:00 2024-02-02 00:00:00 Outpatient HUNDL, HUSEYIN EUBANKS [id number] [facility] 2024-01-25 00:00:00 2024-01-25 00:00:00 Outpatient HUNDL, HUSEYIN EUBANKS [id number] [facility] 2024-01-25 00:00:00 2024-01-25 00:00:00 Outpatient HUNDL, HUSEYIN EUBANKS [id number] [facility] 2024-01-25 00:00:00 2024-01-25 00:00:00 Outpatient HUNDL, HUSEYIN EUBANKS [id number] [facility] 2024-01-08 00:00:00 2024-01-08 00:00:00 Outpatient HUNDL, HUSEYIN EUBANKS [id number] [facility] 2024-01-07 00:00:00 2024-01-07 00:00:00 Outpatient HUNDL, HUSEYIN EUBANKS [id number] [facility] 2024-01-02 00:00:00 2024-01-02 00:00:00 Outpatient HUNDL, HUSEYIN EUBANKS [id number] [facility] 2023-12-29 00:00:00 2023-12-29 00:00:00 Outpatient HUNDL, HUSEYIN EUBANKS [id number] [facility] 2023-12-21 13:45:00 2023-12-21 13:45:00 Outpatient DEMETRI ZALDIVAR MAUREEN EUBANKS [id number] [facility] 2023-12-21 11:00:00 2023-12-21 11:00:00 Outpatient DARIELA RADER [facility]EN [facility]BANKS [id number] [facility]14 10:00:00 2023-12-14 10:00:00 Outpatient HUNDL, HUSEYIN EUBANKS [id number] [facility] 2023-12-14 00:00:00 2023-12-14 00:00:00 Outpatient HUNDL, HUSEYIN EUBANKS [id number] [facility] 2023-12-13 00:00:00 2023-12-13 00:00:00 Outpatient HUNDL, [id number] [facility]-12-10 00:00:00 2023-12-10 00:00:00 Outpatient HUNDL, HUSEYIN EUBANKS [id number] [facility] 2023-12-06 00:00:00 2023-12-06 00:00:00 Outpatient HUNDL, HUSEYIN EUBANKS [id number] [facility] 2023-12-04 10:30:00 2023-12-04 10:30:00 Outpatient NOROUZI, SHARAD MAUREEN EUBANKS [id number] [facility] 2023-12-04 10:30:00 2023-12-04 10:30:00 Outpatient MASSUMI, MAYCO MAUREEN EUBANKS [id number] [facility] 2023-11-14 09:00:00 2023-11-14 09:00:00 Outpatient HUNDL, HUSEYIN EUBANKS [id number] [facility] 2023-11-08 00:00:00 2023-11-08 00:00:00 Outpatient HUNDL, HUSEYIN EUBANKS [id number] [facility] 2023-11-07 00:00:00 2023-11-07 00:00:00 Outpatient HUNDL, HUSEYIN MAUREEN EUBANKS [id number] [facility] 2023-11-06 00:00:00 2023-11-06 00:00:00 Outpatient HUNDL, HUSEYIN EUBANKS [id number] [facility] 2023-11-02 00:00:00 2023-11-02 00:00:00 Outpatient HUNDL, HUSEYIN EUBANKS [id number] [facility] 2023-10-10 14:00:00 2023-10-10 14:00:00 Outpatient HUNDL, HUSEYIN EUBANKS [id number] [facility] 2023-10-06 00:00:00 2023-10-06 00:00:00 Outpatient HUNDL, HUSEYIN EUBANKS [id number] [facility] 2023-10-06 00:00:00 2023-10-06 00:00:00 Outpatient HUNDL, HUSEYIN EUBANKS [id number] [facility] 2023-09-18 00:00:00 2023-09-18 00:00:00 Outpatient HUNDL, HUSEYIN EUBANKS [id number] [facility] 2023-09-17 00:00:00 2023-09-17 00:00:00 Outpatient HUNDL, HUSEYIN EUBANKS [id number] [facility] 2023-09-14 08:50:00 2023-09-14 08:50:00 Outpatient LAB90 MAUREEN EUBANKS [id number] [facility] y[facility] 2023-09-14 00:00:00 2023-09-14 00:00:00 Outpatient HUNDL, HUSEYIN EUBANKS [id number] [facility] 2023-09-13 16:30:00 2023-09-13 16:30:00 Outpatient HUNDL, HUSEYIN EUBANKS [id number] [facility] 2023-09-13 16:30:00 2023-09-13 16:30:00 Outpatient HUNDL HUSEYIN EUBANKS [id number] [facility] Notes Date/Time Note Provider Source Referral ID Status Reason Start Date Expiration Date Visits Requested Visits Authorized [id number] Authorized Specialty Services Required 04/02/2025 07/01/2025 1 1 Bronson [id number] 15:05:45* [id number] 15:05:45* BP Answer Date of Assessment Author 134/82 04/02/2025 2:22 PM CDT Najera, Gerson horton, [place] * Temp Answer Date of Assessment Author 97.7 04/02/2025 2:22 PM CDT Najera, Gerson horton, [place] * Temp src Answer Date of Assessment Author Tympanic 04/02/2025 2:22 PM CDT Najera, Gerson ittjuan, [place] * Pulse Answer Date of Assessment Author 117 04/02/2025 2:22 PM CDT Najera, Gerson horton, [place] * SpO2 Answer Date of Assessment Author 98 04/02/2025 2:22 PM CDT Najera, Gerson horton, [place] * Height Answer Date of Assessment Author 63 04/02/2025 2:22 PM CDT Najera, Gerson ittani, [place] * Weight Answer Date of Assessment Author 3696 04/02/2025 2:22 PM CDT Najera, Br ittani, [place] * Pain Score Answer Date of Assessment Author 5/10 04/02/2025 2:22 PM CDT Najera, Gerson ittjuan, [place] * Position Answer Date of Assessment Author SITTING 04/02/2025 2:22 PM CDT Najera, Gerson ittani, [place] * BSA (Calculated - sq m) Answer Date of Assessment Author 2.16 04/02/2025 2:22 PM CDT Najera, Gerson ittjuan, [place] * BMI (Calculated) Answer Date of Assessment Author 40.9 04/02/2025 2:22 PM CDT Najera, Br ittani, [place] * BMI (Calculated) Answer Date of Assessment Author 40.9 04/02/2025 2:22 PM CDT Najera, Gerson ittjuan, [place] * BSA (Calculated - sq m) Answer Date of Assessment Author 2.16 04/02/2025 2:22 PM CDT Najera, Br ittani, [place] [facility] [id number] 15:05:45* Kayy Gutierrez FNP-C - 04/02/2025 2:30 PM CDT HPI Jenni Doran is a 54 year old female is here for Follow-up, Diabetes, and Headache HPI Follow up type 2 DM/ weight loss management [place] 03/04/25 DM 2: Hasn't been taking Mounjaro 5 mg once weekly yet due to her insurance needing prior authorization. Taking trulicity 4.5 mg once weekly which helps with sugars but no significant weight loss. She needs weight loss in order to get knee surgery done. Was on topiramate in the past with no significant weight loss No longer taking diethylproprion due to side effect dizziness, headaches Hasn't taken trulicity injection this week Has cut back on coke Breakfast: protein shake Post prandial BG once recently was 210 (due to eating bread, sweets) Lowest was 65 - pt hadn't eaten Migraines: Takes sumatriptan prn. Pt had her molars removed recently few weeks ago. Reports some intermittent headaches pressure back of neck intermittent. Pt reports some blurry vision. Will see optometry for DM eye exam. Pt's brother in law's dad recently a few days ago so she has been grieving. 12/14/2023 04/21/2024 05/19/2024 08/04/2024 12/16/2024 MULTIPLE VITALS Weight 231 lbs 233 lbs 234 lbs 229 lbs 235 lbs BMI 40.92 kg/m2 41.27 kg/m2 41.45 kg/m2 40.57 kg/m2 41.63 kg/m2 03/04/2025 04/02/2025 MULTIPLE VITALS Weight 229 lbs 13 oz 231 lbs BMI 40.71 kg/m2 40.92 kg/m2 12/16/24 Lab: Vitamin D 10.9. Hemoglobin 13.4. Hematocrit 42.5. Platelets 303. Hemoglobin A1c 6.2%. 10/03/24: Total cholesterol 123. Triglycerides 133. HDL 41. LDL 60. 09/26/24: Microalbumin creatinine ratio unremarkable. Creatinine 0.86. GFR 88 REVIEW OF SYSTEM All systems are negative, except those pertinent items mentioned in the HPI. Review of Systems Constitutional: Unable to lose weight Respiratory: Negative for chest tightness and shortness of breath. Cardiovascular: Negative for chest pain and palpitations. Gastrointestinal: Negative for abdominal pain, constipation, nausea and vomiting. Endocrine: Negative for polydipsia, polyphagia and polyuria. Neurological: Positive for headaches. Negative for dizziness and light-headedness. PERTINENT HX Allergies:Asa-saccharin and Calcium acetylsalicylate Current Medications:Current Medications[1] I have reviewed the past Medical, Family, and Social history. PHYSICAL EXAM BP 134/82 (Side: Left Arm, Position: SITTING, Cuff Size: Large Adult) | [id number] | Temp 97.7 ?F (36.5 ?C) (Tympanic) | Ht 5' 3" (1.6 m) | Wt 231 lb (104.8 kg) | SpO2 98% | BMI 40.92 kg/m? No LMP recorded. Patient has had a hysterectomy. Physical ExamVitals and nursing note reviewed. Constitutional: General: She is not in acute distress. Appearance: Normal appearance. She is not ill-appearing. Cardiovascular: Rate and Rhythm: Normal rate and regular rhythm. Heart sounds: Normal heart sounds. No murmur heard. Pulmonary: Effort: Pulmonary effort is normal. No respiratory distress. Breath sounds: Normal breath sounds. No wheezing. Neurological: Mental Status: She is alert. Psychiatric: Behavior: Behavior normal. Thought Content: Thought content normal. Judgment: Judgment normal. ASSESSMENT AND PLAN Jenni was seen today for follow-up, diabetes and headache. 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 Will have nursing staff reach out to EP team for prior authorization of tirzepatide. Recommend to continue Trulicity 4.5 mg once weekly. Recommend to eat small healthy frequent snacks throughout the day to prevent hypoglycemia. Recommend to decrease carbohydrate intake to less than 45 g per meal. Recommend to check blood sugars at least twice daily. Recommend to maintain blood sugars less than 140 fasting and less than 200 after meals. If blood sugar remains above 200 further adjustment in medication may be required. BMI 40.0-44.9, adult ([facility])- REFERRAL TO DIETITIAN- .[facility] [place] Migraine without aura and without status migrainosus, not intractableRecommend to take sumatriptan as needed Return in about 4 weeks (around 04/30/2025) for Follow up, Diabetes [place]. Kayy Gutierrez, INSTRUMENTATION SPECIALIST-CSP: DO Maureen VogelLafayette General Medical Center This document was completed using voice recognition software. This can produce tree pruner errors that can at times significantly distort words and phrases. Please interpret any aspect of the note that is nonsensical in light of this fact. [1]Current Outpatient Medications Medication Sig Dispense Refill ALBUTEROL HFA 108 (90 Base) MCG/ACT IN AERS inhale 2 puffs by mouth every 6 hours as needed for wheeze 8.5 each 2 Atorvastatin Calcium 40 MG oral Tablet TAKE 1 TABLET BY MOUTH EVERY DAY. 90 tablet 3 Blood Pressure Monitoring does not apply Kit Use to monitor Blood Pressure twice a day as directed.. 1 kit 0 Celecoxib (CeleBREX) 200 MG oral Capsule Take 1 capsule (200 mg total) by mouth 2 times daily as needed for pain. 60 capsule 1 Chlorhexidine Gluconate 0.12 % mouth/throat Solution Place 15 mL in the mouth or throat 2 times daily. Continuous Glucose Plug Stitcher (FreeStyle Gordon 2 [place]) does not apply Device Check glucose continuously.. 1 each 0 Continuous Glucose Sensor (FreeStyle Gordon 2 Sensor) does not apply Misc Check glucose continuously.. 6 each 2 Cyclobenzaprine HCl 5 MG oral Tablet Take 1 tablet (5 mg total) by mouth nightly as needed for muscle spasms. 30 tablet 1 dexAMETHasone 2 MG oral Tablet Take 1 tablet (2 mg total) by mouth 3 times daily. hydroCHLOROthiazide 12.5 MG oral Capsule Take 1 capsule (12.5 mg total) by mouth daily. 90 capsule 3 Ketoconazole 2 % apply externally Cream APPLY 0.5 G TO RASH TOPICALLY TWICE A DAY DIRECTED. 30 g 3 Meloxicam 7.5 MG oral Tablet Take 1 tablet (7.5 mg total) by mouth daily. Sumatriptan Succinate 25 MG oral Tablet TAKE 1 TABLET BY MOUTH ONCE NEEDED FOR MIGRAINE (MAY REPEAT IN 2 HOURS IF UNRESOLVED. DO NOT EXCEED 200 MG IN 24 HOURS.).. 30 tablet 3 Synvisc 16 MG/2ML intra-articular Solution Prefilled Syringe Tirzepatide 5 MG/0.5ML subcutaneous Solution Auto-injector Inject 5 mg into the skin once a week. 2 mL 1 Vitamin D, Cholecalciferol, 50 MCG (1999 UT) oral Capsule Take by mouth. Ondansetron HCl 4 MG oral Tablet Take 1 tablet (4 mg total) by mouth every 8 hours as needed. No current facility-administered medications for this visit. 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) Type 2 diabetes mellitus in patient with obesity (multi HCC) Expected: 06/17/2025, Expires: 09/15/2025 Scheduled Referrals Name Type Priority Associated Diagnoses Orde r Schedule REFERRAL TO [facility]- [facility] [place] Referral Routine BMI 40.0-44.9, adult ([facility]) Ordered: 04/02/2025 Health Maintenance Due Date Last Done Comments CT Colonography 1970 FIT Tests 1970 Sigmoidoscopy 1970 Mammogram 2010 Cologuard 11/24/2019 11/23/2016 Diabetes: Retinopathy Screening 12/20/2024 12/21/2023, 12/21/2023, 05/25/2023 (Previously completed) Diabetes: Hemoglobin A1C 06/17/2025 025, 04/21/2024, 09/14/2023 Creatinine Level (Kidney Function Test) 09/26/2025 09/26/2024, 09/14/2023 Diabetes: Urine Protein Screening 09/26/2025 09/26/2024, 09/14/2023 Lipid Panel 10/03/2025 10/03/2024, 09/14/2023 Physical Exam 12/16/2025 12/16/2024, 11/24, 12/14/2023, Additional history exists Zoster Vaccines (3 of 3) 04/02/2026 024, 06/23/2024, 04/21/2024, Additional history exists Postponed from 08/18/2024 (Not Indicated) COLONOSCOPY 11/23/2026 11/23/2016 Colorectal Cancer Screening 11/23/2026 Tdap Vaccines 02/12/2027 02/12/2017, 08/06/2015 RSV Vaccines (1 - 1-dose 75+ series) 2045 Influenza Vaccines Completed 03/28/2025, 1 , 04/21/2024, Additional history exists Pneumococcal Vaccine: 50+ Years Completed 03/28/2025, 03/28/2025, 07/31/[address] [facility]2025-10-09 15:05:45 Diagnosis DM type 2 with diabetic mixed hyperlipidemia (multi [facility]) - Primary Type II or unspecified type diabetes mellitus with other specified manifestations, not stated as uncontrolled Type 2 diabetes mellitus in patient with obesity ([facility]) BMI 40.0-44.9, adult ([facility]) Body Mass Index 40.0-44.9, adult Migraine without aura and without status migrainosus, not intractable Migraine without aura, without mention of intractable migraine without mention of status migrainosus [facility]2025-10-09 15:05:45 [place] [id number] 15:25:34* [place] [id number] 15:25:34* Kayy Gutierrez FNP-C - 03/04/2025 2:30 PM CDT HPI Jenni Doran is a 54 year old female is here for Knee Pain (Arthritis in bilateral knees. Would like to get a handicap placard. ) HPI Pt presents for office visit today [place] 12/16/24 Requesting handicap placard today Chronic pain bilateral knees/ osteoarthritis: taking celebrex prn Orthopedics Dr. Stover seen 1.5 months ago. MRI was scheduled on Right knee- done 3 weeks ago Pt will call to schedule follow up appt Was getting synvisc shots and gel Pt wears right knee brace to help with mobility Is able to ambulate but with some difficulty due to swelling and pain Was told not to drive long distances due to swelling Pt went to PT at [facility] Pt cannot walk long distances without frequent rest DM 2: Taking trulicity 4.5 mg once weekly Had taken OTC [facility] for weight loss in the past Will check with insurance about mounjaro Requesting additional help with weight management 6/24/25 Lab: Vitamin D 10.9. Hemoglobin 13.4. Hematocrit 42.5. Platelets 303. Hemoglobin A1c 6.2%. 10/03/24: Total cholesterol 123. Triglycerides 133. HDL 41. LDL 60. 09/26/24: Microalbumin creatinine ratio unremarkable. Creatinine 0.86. GFR 88. REVIEW OF SYSTEM All systems are negative, except those pertinent items mentioned in the HPI. Review of Systems Respiratory: Negative for shortness of breath. Cardiovascular: Negative for chest pain and palpitations. Endocrine: Negative for polydipsia, polyphagia and polyuria. Musculoskeletal: Positive for arthralgias and joint swelling. PERTINENT HX Allergies:Asa-saccharin and Calcium acetylsalicylate Current Medications:Current Medications[1] I have reviewed the past Medical, Family, and Social history. PHYSICAL EXAM BP 130/80 (Side: Left Arm, Position: SITTING, Cuff Size: Large Adult) | [id number] | Temp 98.6 ?F (37 ?C) (Tympanic) | Resp 15 | Ht 5' 3" (1.6 m) | Wt 229 lb 12.8 oz (104.2 kg) | SpO2 98% | BMI 40.71 kg/m? No LMP recorded. Patient has had a hysterectomy. Physical ExamVitals and nursing note reviewed. Constitutional: General: She is not in acute distress. Cardiovascular: Rate and Rhythm: Normal rate and regular rhythm. Heart sounds: Normal heart sounds. No murmur heard. Pulmonary: Effort: Pulmonary effort is normal. No respiratory distress. Breath sounds: Normal breath sounds. No wheezing. Musculoskeletal: General: Swelling present. No tenderness. Comments: Limited ROM with extension and flexion Neurological: Mental Status: She is alert. ASSESSMENT AND PLAN Jenni was seen today for knee pain. Diagnoses and all orders for this visit: Osteoarthritis of both knees, unspecified osteoarthritis type- HANDICAP PLACARD APPLICATION - temporary 6 month -Managed by orthopedics Dr. Stover. Pt had MRI done 3 weeks ago. Patient advised to follow-up following that appointment. Continue continues daily sprays. Celebrex followed by primary RN for finger pain. Monitor for annual creatinine labs following. DM type 2 with diabetic mixed hyperlipidemia (multi HCC)Type 2 diabetes mellitus associated with morbid obesity (multi HCC) - Controlled. Recommend to continue Trulicity 4.5 mg once weekly. Patient advised he needs small B/distractedly to prevent hypoglycemia. Patient can call insurance to see about getting [employer] to help with weight loss. Morbid obesity ([facility])- Diethylpropion HCl 25 MG oral Tablet; Take 1 tablet by mouth daily. - Patient patient was advised on side effects including high blood pressure and palpitations. Patient patient is advised if BP is above 140/90 and consistently recommend stopping medication. Other orders- Meloxicam 7.5 MG oral Tablet; Take 1 tablet (7.5 mg total) by mouth daily. - Vitamin D, Cholecalciferol, 50 MCG (2000 UT) oral Capsule; Take by mouth. Return in about 4 weeks (around 04/01/2025) for Follow up, Weight lossmanagement, Diabetes. ABIEL Tapia-CSP: DO [facility] This document was completed using voice recognition software. This can produce tree pruner errors that can at times significantly distort words and phrases. Please interpret any aspect of the note that is nonsensical in light of this fact. [1]Current Outpatient Medications Medication Sig Dispense Refill ALBUTEROL HFA 108 (90 Base) MCG/ACT IN AERS inhale 2 puffs by mouth every 6 hours as needed for wheeze 8.5 each 2 Atorvastatin Calcium 40 MG oral Tablet TAKE 1 TABLET BY MOUTH EVERY DAY. 90 tablet 3 Blood Pressure Monitoring does not apply Kit Use to monitor Blood Pressure twice a day as directed.. 1 kit 0 Continuous Glucose Plug Stitcher (FreeStyle Gordon 2 [place]) does not apply Device Check glucose continuously.. 1 each 0 Continuous Glucose Sensor (FreeStyle Gordon 2 Sensor) does not apply Misc Check glucose continuously.. 6 each 2 Diethylpropion HCl 25 MG oral Tablet Take 1 tablet by mouth daily. 30 tablet 0 Dulaglutide 4.5 MG/0.5ML subcutaneous Solution Auto-injector Inject 4.5 mg into the skin once a week. 6 mL 3 hydroCHLOROthiazide 12.5 MG oral Capsule Take 1 capsule (12.5 mg total) by mouth daily. 90 capsule 3 Ketoconazole 2 % apply externally Cream APPLY 0.5 G TO RASH TOPICALLY TWICE A DAY DIRECTED. 30 g 3 Meloxicam 7.5 MG oral Tablet Take 1 tablet (7.5 mg total) by mouth daily. Ondansetron (ZOFRAN) 4 MG oral TABLET DISPERSIBLE Take 1 tablet (4 mg total) by mouth every 8 hours as needed for nausea. 21 tablet 1 Synvisc 16 MG/2ML intra-articular Solution Prefilled Syringe Vitamin D, Cholecalciferol, 50 MCG (2000 UT) oral Capsule Take by mouth. Celecoxib (CeleBREX) 200 MG oral Capsule Take 1 capsule (200 mg total) by mouth 2 times daily as needed for pain. 60 capsule 1 Cyclobenzaprine HCl 5 MG oral Tablet Take 1 tablet (5 mg total) by mouth nightly as needed for muscle spasms. 30 tablet 1 Sumatriptan Succinate 25 MG oral Tablet TAKE 1 TABLET BY MOUTH ONCE NEEDED FOR MIGRAINE (MAY REPEAT IN 2 HOURS IF UNRESOLVED. DO NOT EXCEED 200 MG IN 24 HOURS.).. 30 tablet 3 No current facility-administered medications for this visit. [facility] 15:25:34Upcoming Encounters Health Maintenance Due Date Last Done Comments CT Colonography 1970 FIT Tests 1970 Sigmoidoscopy 1970 Mammogram 2010 Pneumococcal Vaccine: 50+ Ye ars (2 of 2 - PCV) 07/31/2017 07/31/2016 Cologuard 11/24/2019 11/23/2016 Zoster Vaccines (3 of 3) 08/18/2024 024, 06/23/2024, 04/21/2024, Additional history exists Diabetes: Retinopathy Screening 12/20/2024 12/21/2023, 12/21/2023, 05/25/2023 (Previously completed) COVID-19 Vaccine (2024-07 6 season) 2025 05/29/2022, 01/23/2022, 01/23/2022, Additional history exists Influenza Vaccines (#1) 2025 04/21/20 24, 04/21/2024, 05/29/2022, Additional history exists Diabetes: Hemoglobin A1C 06/17/2025 025, 04/21/2024, 09/14/2023 Creatinine Level (Kidney Fun ction Test) 09/26/2025 09/26/2024, 09/14/2023 Diabetes: Urine Protein Screening 09/26/2025 025, 09/14/2023 Lipid Panel 10/03/2025 10/03/2024, 09/14/2023 Physical Exam 12/16/2025 12/16/2024, 11/24, 12/14/2023, Additional history exists COLONOSCOPY 11/23/2026 11/23/2016 Colorectal Cancer Screening 11/23/2026 Tdap Vaccines 02/12/2027 02/12/2017, 08/06/2015 RSV Vaccines (1 - 1-dose 75+ series) [address] [facility]2025-09-10 15:25:34 Diagnosis Osteoarthritis of both knees , unspecified osteoarthritis type - Primary DM type 2 with diabetic mixed hyperlipidemia (multi HCC) Type II or unspecified type diabetes mellitus with other specified manifestations, not stated as uncontrolled Type 2 diabetes mellitus ass ociated with morbid obesity ([facility]) Morbid obesity (CMS-HCC) Morbid obesity [facility]2025-09-10 15:25:34 [place] [id number] 14:41:40 Chief Complaint Patient presents with Knee Pain Arthritis in bilateral knees. Would like to get a handicap placard. Care gap discussed with patient and provider. Patient will call to schedule diagnostic MMG as ordered. Saba Arreola [facility] [id number] 14:22:57 Chief Complaint Patient presents with Physical HRA patiens is not fasting. She feels like the Trulicity isn't working. Saba Arreola MA [facility] [id number] 14:59:50 Chief Complaint Patient presents with Diabetes Diabetic follow up Follow-up Discuss PT on knees Saba Arreola MA [facility] [place] [id number] 10:38:31 Chief Complaint Patient presents with Follow-up Shooting pains to BLE and numbness in the feet Princess Matute LVN [facility] [id number] 14:07:49 Chief Complaint Patient presents with Leg Pain Pain and swelling that starts in bilateral feet and radiates up to hips. Saba Arreola MA II MaureenPrakash [id number] 08:47:36 Chief Complaint Patient presents with Follow-up Follow up on anxiety/depression. She states she feels the same Follow up on Diabetes Saba Arreola MA II Saba Arreola MA, IICount Includes [facility] HospitalrafaelaPrakash [id number] 14:03:07 Chief Complaint Patient presents with Diabetes Diabetic follow up Saba Arreola MA II Saba Trinidad [id number] 16:36:20 Chief Complaint Patient presents with New Patient Establish Care Need to get back on her medications Princess Matute LVN [facility]
--- NOTE | 2025-04-11 14:55 | RAD REPORT ---
EXAM: CT brain without contrast HISTORY: Headache COMPARISON: None TECHNIQUE: Multiple contiguous axial images were obtained and a CT of the brain without contrast.. Sagittal and coronal reconstruction performed. Automated exposure control, adjustment of the mA and/or kV according to patient size, and/or iterative reconstruction. Unless otherwise specified, incidental f indings do not require dedicated imaging follow-up FINDINGS: An intracranial bleed is not seen Ventricles are normal caliber No extra-axial fluid collection noted No significant hypodensity within the brain No fluid within the visualized sinuses or mastoids noted. IMPRESSION: No acute intracranial abnormality noted. If the patient continues to have symptoms to suggest an acute intracranial abnormality then MRI of th e brain would be recommended.
[2025-04-11] MEDS ORDERED: NA CHLORIDE 0.9% 1,000 ML ONE (15:11)
[2025-04-11] MEDS ORDERED: NA CHLORIDE 0.9% 50 ML ONE (15:11)
[2025-04-11] MEDS ORDERED: KETOROLAC 30 MG/ML INJ ONE (15:11)
[2025-04-11] MEDS ORDERED: METOCLOPRAMIDE 10 MG/2mL INJ ONE (15:11)
[2025-04-11] MEDS ORDERED: DIPHENHYDRAMINE 50 MG/ML VIAL ONE (15:11)
[2025-04-11 16:12] LABS: ALT/SGPT 30.0 U/L (13-56); AST/SGOT 23.0 U/L (15-37); Albumin 3.4 g/dL (3.4-5.0); Albumin/Globulin Ratio 0.8 (1.1-1.8); Alkaline Phosphatase 113.0 U/L (45-117); Anion Gap 10.5 mEq/L (5.0-15.0); BUN Blood Urea Nitrogen 7.0 mg/dL (7-18); Globulin 4.1 g/dL (2.3-3.5); Glucose Level 89.0 mg/dL (74-106); Potassium 3.5 mEq/L (3.5-5.1)
[2025-04-11 16:52] LABS: Absolute Lymphocytes (CBC) 3.5 K/uL (0.7-4.9); Hematocrit 41.3 % (36.0-45.0); Hemoglobin 13.5 g/dL (12.0-15.0); MCH 27.9 pg (27.0-35.0); MCHC 32.6 g/dL (32.0-36.0); MCV 85.4 fL (80-100); MPV 7.9 fL (7.6-11.3); Nucleated RBC Absolute Count 0.0 (0-0); Nucleated Red Blood Cells % 0.1 % (0-0); RBC Red Blood Cell Count 4.84 M/uL (3.86-4.86); White Blood Count 9.40 thou/uL (4.3-10.9)
--- NOTE | 2025-04-11 17:15 | ER ---
Nurse's Notes [facility] Name: Jenni Doran Age: 54 yrs Sex: Female : 1970 Arrival Date: 04/11/2025 Time: 13:37 Bed 2 Private MD: Diagnosis: Headache;Migraine with aura, not intractable, without status migrainosus Presentation: 04/11 13:58 Chief complaint: Patient states: c/o GEE for about a week, 7/10 "pounding" with nausea, me1 dizziness. Also c/o left ear pain. Had dental work done 3 weeks ago: [place] tooth extraction on R lower with a filling on right upper molar, molar extraction to L upper as well. Coronavirus screen: Vaccine status: Patient reports receiving the 2nd dose of the covid vaccine. Ebola Screen: No symptoms or risks identified at this time. Initial Sepsis Screen: Does the patient meet any 2 criteria? HR > 90 bpm. Does the patient have a suspected source of infection? No. Patient's initial sepsis screen is negative. Risk Assessment: Do you want to hurt yourself or someone else? Patient reports no desire to harm self or others. Onset of symptoms is unknown. 13:58 Method Of Arrival[place] [facility] [place] Acuity: ANICETO 3 me1 Triage Assessment: 17:36 Headache History: The patient has had previous headaches. General: Appears in no ap3 apparent distress. Behavior is calm, cooperative, appropriate for age. Pain: Pain Also complains of no other associated symptoms. [employer] MACHINE: 14:04 LMP N/A - Hysterectomy, Not me1 Historical: - Allergies: 14:04 No Known Allergies; me1 - PMHx: 14:04 Hypercholesterolemia; Diabetes mellitus; bowel perforation; me1 - PSHx: 14:04 Appendectomy; Cholecystectomy; partial colectomy; Total abdominal hysterectomy; me1 - Immunization history:: Adult Immunizations up to date. - Infectious Disease History:: Denies. - Social history:: Smoking status: Patient denies any tobacco usage or history of. - Family history:: not pertinent. Screenin:04 [facility] ED Fall Risk Assessment (Adult) History of falling in the last 3 months, ap3 including since admission No falls in past 3 months (0 pts) Confusion or Disorientation No (0 pts) Intoxicated or Sedated No (0 pts) Impaired Gait No (0 pts) Mobility Assist Device Used No (0 pt) Altered Elimination No (0 pt) Score/Fall Risk Level 0 - 2 = Low Risk Oriented to surroundings, Maintained a safe environment, Educated pt \\T\\ family on fall prevention, incl call for assistance when getting out of bed, Assessed \\T\\ reinforced patient's understanding of fall precautions, Hourly rounding (assess needs \\T\\ fall precautionary measures) done, Used ambulatory aids as needed (educated on \\T\\ assisted with). Abuse screen: Denies threats or abuse. Nutritional screening: No deficits noted. Tuberculosis screening: No symptoms or risk factors identified. Assessment: 15:03 General: Appears in no apparent distress. Behavior is calm, cooperative, appropriate ap3 for age. Pain: Complains of pain in head Pain began gradually. Neuro: Level of Consciousness is awake, alert, obeys commands, Oriented to person, place, time, situation, Appropriate for age Gait is steady, Speech is normal, Facial symmetry appears normal. Cardiovascular: Patient's skin is warm and dry. Respiratory: Airway is patent Respiratory effort is even, unlabored, Respiratory pattern is regular, symmetrical. EENT: Reports recent wisdom tooth removal. Vital Signs: 13:58 BP 120 / 92; Pulse 107; Resp 20; Temp 98.4; Pulse Ox 97% ; Weight 104.78 kg; Height 5 me1 ft. 3 in. ; Pain 7/10; 15:41 BP 123 / 73; Pulse 74; Resp 17; Pulse Ox 100% ; ap3 17:35 BP 115 / 74; Pulse 89; Resp 18; Pulse Ox 100% on R/A; ap3 13:58 Body Mass Index 40.92 (104.78 kg, 160.02 cm) me1 13:58 Pain Scale: Adult me1 Sims Coma Score: 17:11 Eye Response: spontaneous(4). Motor Response: obeys commands(6). Verbal Response: ace oriented(5). Total: 15. ED Course: 13:39 Patient arrived in ED. im 13:50 Antonio Nation MD is Attending Physician. ace 14:04 Triage completed. me1 14:04 Arm band placed on Patient placed in waiting room. me1 14:44 CT Head Brain wo Cont In Process Unspecified. EDMS 15:02 Kailee Guerra, GIANCARLO is Primary Nurse. ap3 15:03 EKG done, by ED staff, reviewed by Antonio Nation MD. ap3 15:11 Inserted saline lock: 20 gauge in right forearm, using aseptic technique. Flushed with em1 10 mL NS. 16:44 Lab(s) recollected, by me, sent to lab. em1 17:14 Guanakito Castano MD is Referral Physician. ace 17:35 No provider procedures requiring assistance completed. IV discontinued, intact, ap3 bleeding controlled, No redness/swelling at site. Pressure dressing applied. 17:37 Patient has correct armband on for positive identification. Provided Education on: ap3 discharge instructions . Administered Medications: 15:41 Drug: NS 0.9% IV 1000 ml IV at 1000 ml once; to be given as a bolus over 60 minutes ap3 Route: IV; Rate: 1000 ml; Site: right forearm; 17:38 Follow up: IV Status: Completed infusion; IV Intake: 1000ml ap3 15:41 Drug: diphenhydrAMINE IVP 50 mg IVP once Route: IVP; Site: right forearm; ap3 17:37 Follow up: Response: No adverse reaction ap3 15:41 Drug: Ketorolac IVP 30 mg IVP once Route: IVP; Site: right forearm; ap3 17:37 Follow up: Response: No adverse reaction; Pain is decreased ap3 15:41 Drug: metoCLOPramide IVP 10 mg IVP once; over 1 to 2 minutes Route: IVP; Site: right ap3 forearm; 17:37 Follow up: Response: No adverse reaction ap3 Medication: 17:37 VIS not applicable for this client. ap3 Intake: 17:38 IV: 1000ml; Total: 1000ml. ap3 Outcome: 17:14 Discharge ordered by . ace 17:36 Discharged to home ambulatory, with family, ap3 17:36 Condition: good 17:36 Discharge instructions given to patient, Instructed on discharge instructions, follow up and referral plans. medication usage, Demonstrated understanding of instructions, follow-up care, medications, Prescriptions given X 2, 17:38 Patient left the ED. ap3 Signatures: Dispatcher [employer] Antonio Haywood MD MD cha Martinez, Eric em1 Kailee Guerra RN RN ap3 Crump, Ana im Eddleman, Kitty, RN RN me1
--- NOTE | 2025-04-11 17:15 | EDPHYS ---
Physician Documentation [facility] Name: Jenni Doran Age: 54 yrs Sex: Female : 1970 Arrival Date: 04/11/2025 Time: 13:37 Bed 2 Private MD: ED Physician Antonio Nation HPI: 04/11 17:05 This 54 yrs old Female presents to ER via Ambulatory with complaints of ace Headache, Blurred Vision, Ear Pain. 17:05 The patient complains of pain to the top of head, forehead, left frontal area, left ace side of the back of head, left occipital area, left base of the skull, right frontal area, right side of the back of head, right occipital area and right base of the skull. The patient describes the headache as aching, constant. Onset: The symptoms/episode began/occurred 2 day(s) ago. Associated signs and symptoms: The patient has no apparent associated signs or symptoms. Severity of symptoms: At its worst the pain was moderate, in the emergency department the pain is unchanged. Headache History: The patient has had previous headaches and this one is similar to previous episodes. The symptoms are alleviated by nothing. the symptoms are aggravated by lights, movement, noise, stress. The patient has experienced similar episodes in the past, multiple times. 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 - Infectious Disease History:: Denies. - Social history:: Smoking status: Patient denies any tobacco usage or history of. - Family history:: not pertinent. ROS: 17:05 Constitutional: Negative for fever, chills, and weight loss, Eyes: Negative for injury, ace pain, redness, and discharge, ENT: Negative for injury, pain, and discharge, Neck: Negative for injury, pain, and swelling, Cardiovascular: Negative for chest pain, palpitations, and edema, Respiratory: Negative for shortness of breath, cough, wheezing, and pleuritic chest pain, Abdomen/GI: Negative for abdominal pain, nausea, vomiting, diarrhea, and constipation, Back: Negative for injury and pain, : Negative for injury, bleeding, discharge, and swelling, MS/Extremity: Negative for injury and deformity, Skin: Negative for injury, rash, and discoloration, Psych: Negative for depression, anxiety, suicide ideation, homicidal ideation, and hallucinations, Allergy/Immunology: Negative for hives, rash, and allergies, Endocrine: Negative for neck swelling, polydipsia, polyuria, polyphagia, and marked weight changes, Hematologic/Lymphatic: Negative for swollen nodes, abnormal bleeding, and unusual bruising, 17:05 Neuro: Positive for headache, weakness, Exam: 17:05 Constitutional: This is a well developed, well nourished patient who is awake, alert, ace and in no acute distress. Head/Face: Normocephalic, atraumatic. Eyes: Pupils equal round and reactive to light, extra-ocular motions intact. Lids and lashes normal. Conjunctiva and sclera are non-icteric and not injected. Cornea within normal limits. Periorbital areas with no swelling, redness, or edema. ENT: Nares patent. No nasal discharge, no septal abnormalities noted. Tympanic membranes are normal and external auditory canals are clear. Oropharynx with no redness, swelling, or masses, exudates, or evidence of obstruction, uvula midline. Mucous membranes moist. Neck: Trachea midline, no thyromegaly or masses palpated, and no cervical lymphadenopathy. Supple, full range of motion without nuchal rigidity, or vertebral point tenderness. No Meningismus. Chest/axilla: Normal chest wall appearance and motion. Nontender with no deformity. No lesions are appreciated. Cardiovascular: Regular rate and rhythm with a normal S1 and S2. No gallops, murmurs, or rubs. Normal PMI, no JVD. No pulse deficits. Respiratory: Lungs have equal breath sounds bilaterally, clear to auscultation and percussion. No rales, rhonchi or wheezes noted. No increased work of breathing, no retractions or nasal flaring. Abdomen/GI: Soft, non-tender, with normal bowel sounds. No distension or tympany. No guarding or rebound. No evidence of tenderness throughout. Back: No spinal tenderness. No costovertebral tenderness. Full range of motion. Skin: Warm, dry with normal turgor. Normal color with no rashes, no lesions, and no evidence of cellulitis. MS/ Extremity: Pulses equal, no cyanosis. Neurovascular intact. Full, normal range of motion., bilateral aka Neuro: Awake and alert, GCS 15, oriented to person, place, time, and situation. Cranial nerves II-XII grossly intact. Motor strength 5/5 in all extremities. Sensory grossly intact. Cerebellar exam normal. Normal gait. Psych: Awake, alert, with orientation to person, place and time. Behavior, mood, and affect are within normal limits. 17:05 ECG was reviewed by the Attending Physician. Vital Signs: 13:58 BP 120 / 92; Pulse 107; Resp 20; Temp 98.4; Pulse Ox 97% ; Weight 104.78 kg; Height 5 me1 ft. 3 in. ; Pain 7/10; 15:41 BP 123 / 73; Pulse 74; Resp 17; Pulse Ox 100% ; ap3 17:35 BP 115 / 74; Pulse 89; Resp 18; Pulse Ox 100% on R/A; ap3 13:58 Body Mass Index 40.92 (104.78 kg, 160.02 cm) me1 13:58 Pain Scale: Adult me1 Horace Coma Score: 17:11 Eye Response: spontaneous(4). Motor Response: obeys commands(6). Verbal Response: ace oriented(5). Total: 15. MDM: 13:50 Medical Screening Exam initiated ace 17:11 Differential diagnosis: cluster headache, cerebral vascular accident, hypertensive ace headache, hypoglycemia, hyponatremia, intracerebral hemorrhage, migraine, neoplasm, otitis, subarachnoid bleed, subdural hematoma, temporal arteritis, tension headache, traumatic injuries, trigeminal neuralgia, uremia, vasomotor headache. Data reviewed: vital signs, nurses notes, lab test result(s), EKG, radiologic studies. Consideration of Admission/Observation Escalation of care including admission/observation considered. I considered the following discharge prescriptions or medication management in the emergency department Medications were administered in the Emergency Department. See MAR. Independent interpretation of the following test(s) in the Emergency Department EKG: See my EKG interpretation above. Test considered but Not performed: MRI: no mri , not available. Historians other than the Patient: Parent: mom well informed. Care significantly affected by the following chronic conditions: Diabetes, Obesity, high chlesterol, bowel perforation. Counseling: I had a detailed discussion with the patient and/or guardian regarding the historical points, exam findings, and any diagnostic results supporting the discharge/admit diagnosis, lab results, radiology results, the need for outpatient follow up, for definitive care, a family practitioner, a neurologist. 04/11 13:52 Order name: CBC with Diff; Complete Time: 17:02 [facility] 04/11 13:52 Order name: CMP; Complete Time: 17:02 [facility] 04/11 13:52 Order name: CT Head Brain wo Cont; Complete Time: 15:21 [facility] 04/11 13:52 Order name: EKG - Nurse/Tech; Complete Time: 15:03 ace 04/11 16:06 Order name: Misc. Order: recollect light purple; Complete Time: 16:44 sp EC:05 Rate is 87 beats/min. Rhythm is regular. QRS [place] is Normal. DC interval is normal. QRS ace interval is normal. QT interval is normal. No Q waves. T waves are Normal. No ST changes noted. Clinical impression: NSR w/ Non-specific ST/T Changes and No evidence of ischemia. Interpreted by me. Reviewed by me. Administered Medications: 15:41 Drug: NS 0.9% IV 1000 ml IV at 1000 ml once; to be given as a bolus over 60 minutes ap3 Route: IV; Rate: 1000 ml; Site: right forearm; 17:38 Follow up: IV Status: Completed infusion; IV Intake: 1000ml ap3 15:41 Drug: diphenhydrAMINE IVP 50 mg IVP once Route: IVP; Site: right forearm; ap3 17:37 Follow up: Response: No adverse reaction ap3 15:41 Drug: Ketorolac IVP 30 mg IVP once Route: IVP; Site: right forearm; ap3 17:37 Follow up: Response: No adverse reaction; Pain is decreased ap3 15:41 Drug: metoCLOPramide IVP 10 mg IVP once; over 1 to 2 minutes Route: IVP; Site: right ap3 forearm; 17:37 Follow up: Response: No adverse reaction ap3 Disposition Summary: 04/11/25 17:14 Discharge Ordered Notes: Location: Home ace Problem: new ace Symptoms: have improved ace Condition: Stable ace Diagnosis - Headache ace - Migraine with aura, not intractable, without status migrainosus ace Followup: ace - With: Private Physician - When: 2 - 3 days - Reason: Recheck today's complaints, Continuance of care, Re-evaluation by your physician Followup: ace - With: Guanakito Castano MD - When: 2 - 3 days - Reason: Recheck today's complaints, Re-evaluation by your physician Discharge Instructions: - Discharge Summary Sheet ace - General Headache Without Cause ace - Migraine Headache ace - Migraine Headache, [id number] ace - General Headache Without Cause, [id number] [facility] Forms: - Medication Reconciliation Form ace - Antibiotic Education ace - Prescription Opioid Use ace - Patient Portal Instructions [facility] - Leadership Thank You Letter [facility] Prescriptions: - ondansetron 4 mg Oral Tablet,disintegrating - take 1 tablet ORAL route every 6 hours as needed for nausea and vomiting; 20 ace tablet; Refills: 0, Product Selection Permitted - Ibuprofen 600 mg Oral tablet - take 1 tablet ORAL route every 6 hours As needed take with food; 21 tablet; ace Refills: 0, Product Selection Permitted Signatures: Dispatcher [employer] EDAntonio Lynch MD MD cha Pinkerton, Shawna sp Prokisch, Amanda RN RN ap3 Kitty Jackson, GIANCARLO RN me1 Corrections: (The following items were deleted from the chart) 13:52 13:52 Head Brain Wo [id number].RAD.BRZ ordered. CEASAR MCDONOUGH
[2025-04-11 20:09] VITALS: TEMP 98.4
[2025-04-11 20:10] VITALS: O2SAT 100
[2025-04-11 20:11] VITALS: BP 115/74
== END 2025-04-11 17:38 | disposition home or self-care (01) ==
LOC: ER 13:37
DX: G43.109 Migraine with aura, not intractable, without status migrainosus (principal)
CPT/HCPCS: 96361; 93005; 85025; 36415; 80053; 70450; 96375; 96374; 99284; J1885; J2765; J1200; J7030